=== PATIENT | female | born 1985 | race Caucasian/White ===

== ENCOUNTER 2020-09-14 15:41 | Emergency (ER) | payer MEDICAID ==
[~2020-09-14] VITALS: Ht 167.6 cm; Wt 146.7 kg
[~2020-09-14 15:41] MED LIST: HYDR-569 PO
[2020-09-14 16:18] LABS: BASOPHILS % (AUTO) 0.6 % (0-1); EOSINOPHILS # (AUTO) 0.2 X10'3 (0-0.9); EOSINOPHILS % (AUTO) 3.2 % (0-6); HEMOGLOBIN 14.1 g/dl (12.0-16.0); LYMPHOCYTES # (AUTO) 2.4 X10'3 (1.1-4.8); LYMPHOCYTES % (AUTO) 30.3 % (21-51); MEAN CORPUSCULAR HEMOGLOBIN 27.3 PG (27.0-31.0); MEAN CORPUSCULAR HGB CONC 32.8 g/dL (33.0-36.5); MEAN CORPUSCULAR VOLUME 83.2 FL (78-98); MEAN PLATELET VOLUME 9.2 FL (7.4-10.4); MONOCYTES # (AUTO) 0.4 X10'3 (0-0.9); MONOCYTES % (AUTO) 5.2 % (2-12); NEUTROPHILS # (AUTO) 4.8 X10'3 (1.8-7.7); NEUTROPHILS % (AUTO) 60.7 % (42-75); PLATELET COUNT 237 X10'3 (140-440); RED BLOOD COUNT 5.17 X10'6 (4.20-5.60); RED CELL DISTRIBUTION WIDTH 14.7 % (11.5-14.5); WHITE BLOOD COUNT 7.9 X10'3 (4.5-11.0)
[2020-09-14 16:32] LABS: ALANINE AMINOTRANSFERASE 31 U/L (12-78); ALBUMIN 3.3 G/DL (3.4-5.0); ALBUMIN/GLOBULIN RATIO 0.8 (1.1-1.5); ALKALINE PHOSPHATASE 94 IU/L (46-116); ANION GAP 10 (8-16); ASPARTATE AMINO TRANSFERASE 20 U/L (10-37); BILIRUBIN,TOTAL 0.5 MG/DL (0.1-1.0); BLOOD UREA NITROGEN 12 MG/DL (7-18); CALCIUM 8.9 MG/DL (8.5-10.1); CHLORIDE 107 MMOL/L (99-107); GLUCOSE 140 MG/DL (70-104); LIPASE 76 U/L (73-393); POTASSIUM 3.8 MMOL/L (3.5-5.1); SODIUM 143 MMOL/L (135-145); TOTAL CARBON DIOXIDE 25.7 MMOL/L (24-32); TOTAL PROTEIN 7.3 G/DL (6.4-8.2); eGFR 63 ML/MIN
[2020-09-14 16:50] LABS: CLARITY,URINE CLEAR (Clear); COLOR,URINE YELLOW (Yellow); GLUCOSE, URINE NEGATIVE (Neg); KETONES,URINE NEGATIVE (Neg); LEUKOCYTE ESTERASE ,URINE NEGATIVE (Neg); NITRITES, URINE NEGATIVE (Neg); OCCULT BLOOD,URINE NEGATIVE (Neg); PH,URINE 5.5 (4.8-8.0); PROTEIN,URINE NEGATIVE (Neg); URINE HCG NEGATIVE (NEG); UROBILINOGEN,URINE 0.2 E.U/dL (0.2-1.0)
[2020-09-14 16:51] LABS: UA COLLECTION TYPE VOIDED
[2020-09-14 17:42] VITALS: BP 134/87
[2020-09-14] MEDS ORDERED: CEPH-585 PO (17:46)
== END 2020-09-14 17:43 | disposition home or self-care (01) ==
LOC: ER 15:42
DX: R10.32 Left lower quadrant pain (principal); G47.30 Sleep apnea, unspecified; E11.9 Type 2 diabetes mellitus without complications; Z88.8 Allergy status to other drugs, medicaments and biological substances; Z79.899 Other long term (current) drug therapy
CPT/HCPCS: 36415; 80053; 81003; 81025; 83690; 85025; 99283

== ENCOUNTER 2021-01-18 04:58 | Emergency (ER) | payer MEDICAID ==
[~2021-01-18] VITALS: Ht 167.6 cm; Wt 167.3 kg
[2021-01-18 05:17] VITALS: BP 135/78
== END 2021-01-18 06:09 | disposition home or self-care (01) ==
LOC: ER 04:58
DX: B34.9 Viral infection, unspecified (principal); R05 Cough; R53.1 Weakness; R06.02 Shortness of breath; R09.89 Other specified symptoms and signs involving the circulatory and respiratory systems; E11.9 Type 2 diabetes mellitus without complications; Z88.6 Allergy status to analgesic agent; Z79.899 Other long term (current) drug therapy
CPT/HCPCS: 71045; 99283

== ENCOUNTER 2023-01-23 22:07 | Emergency (ER) | payer MEDICAID ==
[~2023-01-23] VITALS: Ht 167.6 cm; Wt 172.8 kg
[2023-01-23 22:17] VITALS: TEMP 97.7
[2023-01-23 23:36] LABS: ALANINE AMINOTRANSFERASE 25 U/L (12-78); ALBUMIN 3.4 G/DL (3.4-5.0); ALBUMIN/GLOBULIN RATIO 0.8 (1.1-1.5); ALKALINE PHOSPHATASE 99 IU/L (46-116); ANION GAP 12 (8-16); ASPARTATE AMINO TRANSFERASE 19 U/L (10-37); BILIRUBIN,TOTAL 0.5 MG/DL (0.1-1.0); BLOOD UREA NITROGEN 10 MG/DL (7-18); BUN/CREATININE RATIO 8.8 (10.0-20.0); CHLORIDE 104 MMOL/L (99-107); CREATININE 1.14 MG/DL (0.40-0.90); GLUCOSE 144 MG/DL (70-104); LIPASE < 50 U/L (73-393); POTASSIUM 3.2 MMOL/L (3.5-5.1); SODIUM 139 MMOL/L (135-145); TOTAL CARBON DIOXIDE 23.4 MMOL/L (24-32); TOTAL PROTEIN 7.5 G/DL (6.4-8.2); eCRCL 62 ML/MIN; eGFR 53 ML/MIN
[2023-01-23] MEDS ORDERED: ondansetron/PF 4mg/2ml inj IV ONE (23:55)
[2023-01-23] MEDS ORDERED: normal saline 1000ML IV soln IVB ONE (23:55)
[2023-01-23] MEDS ORDERED: morphine 4 MG/ML inj SYRINge IV PRN (23:55)
[2023-01-24 00:03] LABS: URINE HCG NEGATIVE (NEG)
[2023-01-24 00:05] LABS: BILIRUBIN,URINE MODERATE (Neg); CLARITY,URINE TURBID (Clear); COLOR,URINE YELLOW (Yellow); GLUCOSE, URINE NEGATIVE (Neg); KETONES,URINE TRACE mg/dl (Neg); LEUKOCYTE ESTERASE ,URINE NEGATIVE (Neg); NITRITES, URINE NEGATIVE (Neg); OCCULT BLOOD,URINE NEGATIVE (Neg); PROTEIN,URINE 30 mg/dl (Neg); UROBILINOGEN,URINE 0.2 E.U/dL (0.2-1.0)
[2023-01-24 00:15] LABS: UA COLLECTION TYPE CLN CATCH MIDSTREAM
[2023-01-24 00:17] LABS: HYALINE CASTS 0-3 /LPF (NEGATIVE); SQUAMOUS EPITHELIAL CELL,UR MANY /LPF (FEW)
[2023-01-24 00:20] LABS: BACTERIA,URINE 3+ /HPF (Neg); MUCUS STRANDS MODERATE /LPF (Neg); RBC,URINE 0-2 /HPF (0-2); WBC,URINE 0-4 /HPF (0-4)
[2023-01-24 00:21] LABS: YEAST FEW /HPF (NEGATIVE)
[2023-01-24 00:37] LABS: BASOPHILS % (AUTO) 0.3 % (0-1); EOSINOPHILS # (AUTO) 0.3 X10'3 (0-0.9); EOSINOPHILS % (AUTO) 2.3 % (0-6); HEMOGLOBIN 17.8 g/dl (12.0-16.0); LYMPHOCYTES # (AUTO) 1.9 X10'3 (1.1-4.8); LYMPHOCYTES % (AUTO) 13.5 % (21-51); MEAN CORPUSCULAR HEMOGLOBIN 27.5 PG (27.0-31.0); MEAN CORPUSCULAR VOLUME 83.4 FL (78-98); MEAN PLATELET VOLUME 9.6 FL (7.4-10.4); MONOCYTES # (AUTO) 0.9 X10'3 (0-0.9); MONOCYTES % (AUTO) 6.5 % (2-12); NEUTROPHILS # (AUTO) 11.1 X10'3 (1.8-7.7); NEUTROPHILS % (AUTO) 77.4 % (42-75); PLATELET COUNT 317 X10'3 (140-440); RED BLOOD COUNT 6.47 X10'6 (4.20-5.60); RED CELL DISTRIBUTION WIDTH 15.3 % (11.5-14.5); WHITE BLOOD COUNT 14.4 X10'3 (4.5-11.0)
[2023-01-24] MEDS ORDERED: potassium Cl 20 mEq SR tablet PO STA (02:14)
[2023-01-24] MEDS ORDERED: HYDR-3972 PO ×2 (02:19)
[2023-01-24] MEDS ORDERED: ONDA4TAB12 PO (02:19)
[2023-01-24 02:36] VITALS: BP 133/87; PULSE 104; RESP 16; O2SAT 96
== END 2023-01-24 02:38 | disposition home or self-care (01) ==
LOC: ER 22:08
DX: K80.50 Calculus of bile duct without cholangitis or cholecystitis without obstruction (principal); E87.6 Hypokalemia
CPT/HCPCS: 74176; 80053; 81001; 81025; 83690; 85025; 87088; 96361; 96374; 96375; 99285; J2270; J2405; J7030; 81003

== ENCOUNTER 2023-03-04 05:33 | Day surgery (SDC) | payer MEDICAID ==
[2023-02-25 10:40] LABS: MONOCYTES # (AUTO) 0.5 X10'3 (0-0.9); PRE OP PLATELET COUNT 232 X10'3 (140-440)
[2023-02-25 10:42] LABS: BASOPHILS % (AUTO) 0.5 % (0-1); EOSINOPHILS # (AUTO) 0.2 X10'3 (0-0.9); LYMPHOCYTES # (AUTO) 2.1 X10'3 (1.1-4.8); LYMPHOCYTES % (AUTO) 34.2 % (21-51); MEAN CORPUSCULAR HEMOGLOBIN 27.7 PG (27.0-31.0); MEAN CORPUSCULAR HGB CONC 32.9 g/dL (33.0-36.5); MEAN CORPUSCULAR VOLUME 84.1 FL (78-98); NEUTROPHILS # (AUTO) 3.2 X10'3 (1.8-7.7); NEUTROPHILS % (AUTO) 53.3 % (42-75); PRE OP HEMATOCRIT 43.7 % (35.0-45.0); PRE OP HEMOGLOBIN 14.4 g/dL (12.0-16.0); RED CELL DISTRIBUTION WIDTH 15.2 % (11.5-14.5)
[2023-02-25 10:53] LABS: ALBUMIN 3.2 G/DL (3.4-5.0); ALBUMIN/GLOBULIN RATIO 0.8 (1.1-1.5); ALKALINE PHOSPHATASE 103 IU/L (46-116); BLOOD UREA NITROGEN 12 MG/DL (7-18); BUN/CREATININE RATIO 11.7 (10.0-20.0); CALCIUM 9.2 MG/DL (8.5-10.1); CHLORIDE 106 MMOL/L (99-107); CREATININE 1.03 MG/DL (0.40-0.90); PRE OP ALT 40 U/L (30-65); PRE OP ANION GAP 5 (8-16); PRE OP AST 23 U/L (10-37); PRE OP BILIRUB, TOTAL 0.5 MG/DL (0.0-1.0); PRE OP GLUCOSE 145 MG/DL (70-104); PRE OP POTASSIUM 3.7 MMOL/L (3.4-5.1); PRE OP SODIUM 140 MMOL/L (135-145); TOTAL PROTEIN 7.1 G/DL (6.4-8.2); eGFR 60 ML/MIN
[2023-03-04] VITALS (12 sets, daily range): BP systolic 110–139; BP diastolic 46–98; PULSE 55–99; RESP 12–21; TEMP 98.5; O2SAT 90–98
[~2023-03-04] VITALS: Ht 167.6 cm; Wt 178.4 kg
[~2023-03-04 05:33] MED LIST changes: -HYDR-569 PO; +INDOCYANINE GREEN 25 MG/10 ML VIAL IV ONE; +SEMA1PEN3 SQ; +ceFAZolin inj. 3,000 MG in normal saline 100ml IV soln 100 ML IV ONE; +famotidine 20mg tablet PO ONE; +ringers solution, lacted 1,000 ML IV SCH
[2023-03-04] MEDS ORDERED: LIDOcaine 1% 30ml preserv. free vial ONE (06:39)
[2023-03-04] MEDS ORDERED: BUPIVAcaine/PF 2.5 mg/ml (0.25%) 30ml vial ONE (06:39)
[2023-03-04] MEDS ORDERED: fentaNYL/PF 50MCG/1 ML 2ML syringe ONE ×2 (07:22→08:00)
[2023-03-04] MEDS ORDERED: midazolam 1 mg/ML 2ml injection ONE (07:22)
[2023-03-04] MEDS ORDERED: sevoflurane 250ml liquid IH ONE (07:29)
[2023-03-04] MEDS ORDERED: meperidine/PF 25mg/ml syringe IV PRN ×3 (07:50)
[2023-03-04] MEDS ORDERED: proCHLORperazine 10 MG/2 ml inj IV PRN (07:50)
[2023-03-04] MEDS ORDERED: morphine 2 MG/ML inj. syringe IV PRN (07:50)
[2023-03-04] MEDS ORDERED: ondansetron/PF 4mg/2ml inj IV PRN (07:50)
[2023-03-04] MEDS ORDERED: morphine 4 MG/ML inj SYRINge IV PRN (07:50)
[2023-03-04] MEDS ORDERED: ringers solution, lacted 1,000 ML IV SCH (07:50)
[2023-03-04] MEDS ORDERED: propofol inj 20 ML IV ONE (08:57)
[2023-03-04] MEDS ORDERED: hydrALAZINE 20mg/ml inj. IV ONE (08:57)
[2023-03-04] MEDS ORDERED: rocuronium 10mg/ml inj IV ONE (08:57)
[2023-03-04] MEDS ORDERED: LIDOcaine 2% (20mg/ml) 5ml vial ONE (08:57)
[2023-03-04] MEDS ORDERED: succinylcholine 20mg/ml inj IV ONE (08:57)
[2023-03-04] MEDS ORDERED: dexamethasone sod phosphate 4mg/ml inj. ONE (08:57)
[2023-03-04] MEDS ORDERED: labetalol 20mg/4ml (5mg/ml) syringe IV ONE (08:57)
[2023-03-04] MEDS ORDERED: ondansetron/PF 4mg/2ml inj ONE (08:57)
[2023-03-04] MEDS ORDERED: sugammadex 200mg/2ml injection IV ONE ×2 (09:07→09:10)
--- NOTE | 2023-03-04 09:11 | NUR ---
Received from OR via sabrina, accompanied by Anesthesiologist and report given by NEIL Anesthesiologist. PATIENT A&OX4, SEVERE ABDOMEN PAIN-MEDICATED, V/S WNL, SCD ON , PIV 20G RIGHT FOREARM, BANDAID LAPS SITES CLOSED C/D/I TO ABDOMEN. Addendum: 03/04/23 at 8615 by Roderick Barney RN Amended: Links added.
[2023-03-04] MEDS ORDERED: acetaminophen 1,000mg/100ml IV 100 ML IV ONE (09:20)
[2023-03-04] MEDS ORDERED: oxyCODONE/APAP 5-325mg tablet PO PRN (09:25)
[2023-03-04] MEDS ORDERED: neostigmine methylsulfate 1 MG/ML 10ml vial ONE (09:32)
[2023-03-04] MEDS ORDERED: glycopyrrolate 0.2mg/ml inj ONE (09:32)
--- NOTE | 2023-03-04 11:06 | NUR ---
ALL DISCHARGE CRITERIA HAS BEEN MET. VSS, PAIN AT A TOLERABLE LEVEL, VOIDING AND ABLE TO SAFELY AMBULATE AND TRANSFER SELF. IV TAKEN OUT WITHOUT ANY COMPLICATIONS. ALL DISCHARGE INSTRUCTIONS COVERED WITH PATIENT AND ALL QUESTIONS ANSWERED. PATIENT TAKEN OUT VIA WHEELCHAIR WITH ALL BELONGINGS TO PERSONAL VEHICLE WHERE FAMILY DROVE PATIENT HOME. Addendum: 03/04/23 at 1124 by Roderick Barney RN Amended: Links added.
== END 2023-03-04 11:06 | disposition home or self-care (01) ==
LOC: PAS 05:33
PROVIDERS: ATTEND Surgery
DX: K80.20 Calculus of gallbladder without cholecystitis without obstruction (principal); E66.01 Morbid (severe) obesity due to excess calories; Z79.899 Other long term (current) drug therapy; Z98.49 Cataract extraction status, unspecified eye; Z98.890 Other specified postprocedural states; Z68.44 Body mass index [BMI] 60.0-69.9, adult
CPT/HCPCS: 36415; 47563; 80053; 82948; 85025; 93005; J0131; J0330; J0360; J0690; J1100; J2175; J2250; J2270; J2405; J2704; J2710; J3010; J3490; J7030; J7120; S2900; Z7506; Z7508; Z7512; A4215; A4618; A7000

== ENCOUNTER 2023-10-07 18:47 | Emergency (ER) | payer MEDICAID ==
[~2023-10-07] VITALS: Ht 167.6 cm; Wt 177.6 kg
[~2023-10-07 18:47] MED LIST changes: -INDOCYANINE GREEN 25 MG/10 ML VIAL IV ONE; -ceFAZolin inj. 3,000 MG in normal saline 100ml IV soln 100 ML IV ONE; -famotidine 20mg tablet PO ONE; -ringers solution, lacted 1,000 ML IV SCH
[2023-10-07 19:22] LABS: URINE HCG NEGATIVE (NEG)
[2023-10-07 19:29] LABS: BILIRUBIN,URINE NEGATIVE (Neg); CLARITY,URINE CLEAR (Clear); COLOR,URINE YELLOW (Yellow); GLUCOSE, URINE NEGATIVE (Neg); KETONES,URINE TRACE mg/dl (Neg); LEUKOCYTE ESTERASE ,URINE NEGATIVE (Neg); NITRITES, URINE NEGATIVE (Neg); OCCULT BLOOD,URINE NEGATIVE (Neg); PROTEIN,URINE NEGATIVE (Neg); UROBILINOGEN,URINE 0.2 E.U/dL (0.2-1.0)
[2023-10-07 19:30] LABS: UA COLLECTION TYPE NON-SPECIFIED
[2023-10-07 19:33] LABS: BASOPHILS # (AUTO) 0.1 X10'3 (0-0.2); BASOPHILS % (AUTO) 0.8 % (0-1); EOSINOPHILS # (AUTO) 0.5 X10'3 (0-0.9); HEMATOCRIT 44.5 % (35.0-45.0); HEMOGLOBIN 14.8 g/dl (12.0-16.0); LYMPHOCYTES # (AUTO) 2.5 X10'3 (1.1-4.8); LYMPHOCYTES % (AUTO) 27.6 % (21-51); MEAN CORPUSCULAR HEMOGLOBIN 27.6 PG (27.0-31.0); MEAN CORPUSCULAR HGB CONC 33.1 g/dL (33.0-36.5); MEAN CORPUSCULAR VOLUME 83.3 FL (78-98); MEAN PLATELET VOLUME 9.5 FL (7.4-10.4); MONOCYTES # (AUTO) 0.6 X10'3 (0-0.9); NEUTROPHILS # (AUTO) 5.5 X10'3 (1.8-7.7); NEUTROPHILS % (AUTO) 59.6 % (42-75); PLATELET COUNT 213 X10'3 (140-440); RED BLOOD COUNT 5.35 X10'6 (4.20-5.60); RED CELL DISTRIBUTION WIDTH 15.1 % (11.5-14.5); WHITE BLOOD COUNT 9.2 X10'3 (4.5-11.0)
[2023-10-07 19:49] LABS: ALANINE AMINOTRANSFERASE 33 U/L (12-78); ALBUMIN 3.4 G/DL (3.4-5.0); ALBUMIN/GLOBULIN RATIO 0.9 (1.1-1.5); ALKALINE PHOSPHATASE 89 IU/L (46-116); ANION GAP 7 (8-16); ASPARTATE AMINO TRANSFERASE 25 U/L (10-37); BILIRUBIN,TOTAL 0.6 MG/DL (0.1-1.0); BLOOD UREA NITROGEN 8 MG/DL (7-18); BUN/CREATININE RATIO 7.3 (10.0-20.0); CHLORIDE 109 MMOL/L (99-107); CREATININE 1.09 MG/DL (0.40-0.90); GLUCOSE 99 MG/DL (70-104); LIPASE 46 U/L (16-77); POTASSIUM 3.8 MMOL/L (3.5-5.1); SODIUM 143 MMOL/L (135-145); TOTAL CARBON DIOXIDE 27.4 MMOL/L (24-32); TOTAL PROTEIN 7.3 G/DL (6.4-8.2); eCRCL 65 ML/MIN; eGFR 56 ML/MIN
[2023-10-07 22:21] VITALS: BP 125/76; PULSE 60; RESP 17; TEMP 98.3; O2SAT 94
[2023-10-07] MEDS ORDERED: METR-159 PO (22:23)
[2023-10-07] MEDS ORDERED: LEVO-65 PO (22:23)
== END 2023-10-07 22:28 | disposition home or self-care (01) ==
LOC: ER 18:47
DX: K52.9 Noninfective gastroenteritis and colitis, unspecified (principal); E11.9 Type 2 diabetes mellitus without complications; G47.30 Sleep apnea, unspecified; Z88.8 Allergy status to other drugs, medicaments and biological substances
CPT/HCPCS: 36415; 74176; 80053; 81003; 81025; 83690; 85025; 99284

== ENCOUNTER 2024-09-03 03:56 | Inpatient (IN) | payer MEDICAID ==
[~2024-09-03] VITALS: Ht 167.6 cm; Wt 161.3 kg
--- NOTE | 2024-09-03 06:29 | Physician Documentation ---
History of Present Illness ~ Chief Complaint: Leg Pain Stated Complaint: INFECTED LEG AND FOOT Time Seen by MD: 06:23 Primary Medical Doctor: rakan Source: patient, family HPI Patient presenting for right foot swelling. She was recently in [place] where she was noted to have a cellulitis and she was prescribed Levaquin. Her symptoms have worsened as well as increasing swelling Tetanus witin 5 years: Yes (2018) Medication Reconciliation Allergies: Coded Allergies: naproxen (Unverified Allergy, Unknown, 09/03/24) Scheduled Semaglutide (Ozempic), 1 DIS.SYR SQ Q7D, (Reported) Past Medical History Past Medical History: Sleep Apnea, Diabetes Past Surgical History: no surgical history Alcohol Use: None Drug Use: none Lives with: Family Review of Systems Constitutional: Denies: chills, fever Physical Exam Vital Signs: Temperature: 98.0, Source: Oral, Heart Rate: 82, Respiratory Rate: 16, BP: 139/83, Pulse Oximetry: 97, Weight: 161.300 Oxygen Flow Rate: 0 Physical Exam Nontoxic Morbidly obese Purulent wound plantar surface of right foot. Dorsal foot swelling and erythema tracking up mid calf. Progress Progress Note Discussed with the hospitalist team who agree with plan for admission Results/Orders Reviewed/noted all lab results: Yes Results/Orders Orders - MORENO LIAO MD Cult (Aer) Routine C&S+Gram St (09/03/24 06:27) Wound Care Orders (09/03/24 06:27) BMP (09/03/24 06:27) Piperacillin/Tazo 4.5gm/100ml (Zosyn 4.5 (09/03/24 08:00) ESR (09/03/24 06:31) C-Reactive Protein (09/03/24 06:31) Foot, Complete (3vw Min) (09/03/24 06:31) Page Hospitalist (09/03/24 06:38) Fill Out Med Reconciliation (09/03/24 06:38) Completed Orders - MORENO LIAO MD Cbc/Diff (09/03/24 06:27) Foot, Complete (3vw Min) (09/03/24 06:31) Vital Signs 09/03/24 04:02 Temp 98.0 Pulse 82 Resp 16 B/P (MAP) 139/83 Pulse Ox 97 O2 Flow Rate 0 Laboratory Tests Test 09/03/24 06:49 White Blood Count 9.2 Red Blood Count 5.25 Hemoglobin 14.2 Hematocrit 42.4 Mean Corpuscular Volume 80.8 Mean Corpuscular Hemoglobin 27.1 Mean Corpuscular Hemoglobin Concent 33.5 Red Cell Distribution Width 15.0 H Platelet Count 222 Mean Platelet Volume 9.7 Neutrophils (%) (Auto) 64.4 Lymphocytes (%) (Auto) 23.7 Monocytes (%) (Auto) 9.2 Eosinophils (%) (Auto) 2.2 Basophils (%) (Auto) 0.5 Neutrophils # (Auto) 5.9 Lymphocytes # (Auto) 2.2 Monocytes # (Auto) 0.8 Eosinophils # (Auto) 0.2 Basophils # (Auto) 0.0 CBC Comment Chemistry Comments EKG/XRAY/CT/US/VASC/MRI Bone/Soft Tissue X-Ray (Ext.) : Additional Comment X-ray independently interpreted by myself shows no foreign body soft tissue edema no osteomyelitis Medical Decision Making Findings Reviewed discharge summary February 2023 Additional Comment Cellulitis, abscess, immersion foot Departure Disposition: ADMITTED INPATIENT Admitted to Inpatient Unit: to hospitalist Impression: Primary Impression: Cellulitis Qualified Codes: L03.115 - Cellulitis of right lower limb Additional Impression Text Patient with morbid obesity presenting for increasing drainage and redness from atraumatic foot wound while in [place] traveling. She is afebrile. She has cellulitis of right lower extremity some purulent drainage from her dorsal foot. She will we will need to be admitted for IV antibiotics and wound care given extent of infection and failure of p.o. antibiotics Referrals: NO PRIMARY CARE PROVIDER (PCP) Signature Scribe Signature: Chanelle Attestation: MORENO Noyola MD Sep 03, 2024 06:29
[2024-09-03 07:00] LABS: BASOPHILS % (AUTO) 0.5 % (0-1); EOSINOPHILS # (AUTO) 0.2 X10'3 (0-0.9); EOSINOPHILS % (AUTO) 2.2 % (0-6); HEMATOCRIT 42.4 % (35.0-45.0); HEMOGLOBIN 14.2 g/dl (12.0-16.0); LYMPHOCYTES # (AUTO) 2.2 X10'3 (1.1-4.8); LYMPHOCYTES % (AUTO) 23.7 % (21-51); MEAN CORPUSCULAR HEMOGLOBIN 27.1 PG (27.0-31.0); MEAN CORPUSCULAR HGB CONC 33.5 g/dL (33.0-36.5); MEAN CORPUSCULAR VOLUME 80.8 FL (78-98); MEAN PLATELET VOLUME 9.7 FL (7.4-10.4); MONOCYTES # (AUTO) 0.8 X10'3 (0-0.9); MONOCYTES % (AUTO) 9.2 % (2-12); NEUTROPHILS # (AUTO) 5.9 X10'3 (1.8-7.7); NEUTROPHILS % (AUTO) 64.4 % (42-75); PLATELET COUNT 222 X10'3 (140-440); RED BLOOD COUNT 5.25 X10'6 (4.20-5.60); WHITE BLOOD COUNT 9.2 X10'3 (4.5-11.0)
--- NOTE | 2024-09-03 07:03 | RADIOLOGY REPORT ---
CLINICAL INDICATION: right plantar foot infection TECHNIQUE: DI FOOT, COMPLETE (3VW MIN) Comparison: None FINDINGS/IMPRESSION: : There is no evidence of acute fracture or dislocation. No definite radiographic evidence of osteomyelitis. Plantar calcaneal enthesopathy. Moderate diffuse plantar surface soft tissue swelling.
[2024-09-03 07:11] LABS: ALBUMIN 3.1 G/DL (3.4-5.0); ANION GAP 12 (8-16); BLOOD UREA NITROGEN 18 MG/DL (7-18); BUN/CREATININE RATIO 14.9 (10.0-20.0); C-REACTIVE PROTEIN 10.45 MG/DL (0.0-0.5); CALCIUM 8.8 MG/DL (8.5-10.1); CHLORIDE 103 MMOL/L (99-107); CREATININE 1.21 MG/DL (0.40-0.90); GLUCOSE 94 MG/DL (70-104); SODIUM 142 MMOL/L (135-145); TOTAL CARBON DIOXIDE 27.5 MMOL/L (24-32); eCRCL 58 ML/MIN; eGFR 49 ML/MIN
[2024-09-03 07:15] LABS: POTASSIUM 2.5 MMOL/L (3.5-5.1)
[2024-09-03] MEDS: potassium Cl 20 mEq SR tablet PO STA ×2 (08:22→17:09)
[2024-09-03] MEDS: piperacillin/tazo 4.5gm/100ml 100 ML IV ONE (08:22)
[2024-09-03] MEDS ORDERED: ondansetron/PF 4mg/2ml inj IV PRN (09:45)
[2024-09-03] MEDS ORDERED: potassium Cl 20 mEq SR tablet PO PRN (09:45)
[2024-09-03] MEDS ORDERED: mag hydrox/Alum hydrox/simeth 30ml oral suspension PO PRN (09:45)
[2024-09-03] MEDS ORDERED: morphine 2 MG/ML inj. syringe IV PRN (09:45)
[2024-09-03] MEDS ORDERED: potassium Cl 40MEQ/1/2NS 520ml 520 ML IV PRN (09:45)
[2024-09-03] MEDS ORDERED: magnesium sulf-water 2g/50mL 50 ML IV PRN (09:45)
[2024-09-03] MEDS ORDERED: magnesium sulf-water 4G/100mL 100 ML IV PRN (09:45)
[2024-09-03] MEDS ORDERED: magnesium hydroxide 30ml (MOM) UD suspension PO PRN (09:45)
[2024-09-03] MEDS ORDERED: magnesium Cl slow-release 64mg tablet PO PRN (09:45)
[2024-09-03 10:03] LABS: MAGNESIUM 2.1 MG/DL (1.5-2.4)
[2024-09-03 10:05] LABS: HEMOGLOBIN A1C 5.4 % (4.5-6.2)
--- NOTE | 2024-09-03 11:27 | HISTORY AND PHYSICAL-Residence ---
History & Physical Providers to CC Resident Creating Document: JUSTIN STEARNS, RES ~ History of Present Illness Primary Medical Doctor: DO rakan. [facility] Reason for Admit\Complaint: Right foot pain History of Present Illness 39 years old female patient with past medical history of obstructive sleep apnea, prediabetes, and obesity came to the hospital with chief complaint of right lower extremity pain. The patient mentioned that she noticed a blister in her right foot the last Wednesday, after two days she noticed the blister this one broke and redness started going up to his right calf and leg. Previous to that she endorses that she did a long walk of 6 hours in [facility] where she traveled on 08/26/2024. The patient describes burning sensation, pain 10/10 in intensity in the right lower extremity, no radiation, associated throbbing, feeling hot, she endorses on and off chills and nausea. The patient mentioned that she went to a clinic in [facility] due to her blisters, she was prescribed with a an antibiotic for three days, and discharged. The patient states that her trip was on 19 hours flight. Associated to these symptoms she also endorses diarrhea for 10 days which resolved two days ago, normal bowel movements in the last two days. The patient regularly walks by herself but lately for her blisters she has been walking with the help of a cane. Allergies: Coded Allergies: naproxen (Unverified Allergy, Unknown, 09/03/24) Home Medications Home Medications Active Reported Ozempic (Semaglutide) 1 Mg/0.75 Ml (4 Mg/3 Ml) Pen.injctr 1 Dis.syr SQ Q7D Past Medical History Past Medical History Obstructive sleep apnea currently on CPAP at nights. Prediabetic, the patient is currently using Ozempic 1 mg weekly. The last dose was two weeks ago. Past Surgical History Surgical History Comment Ovarian cyst removal 10 years ago. Cholecystectomy one year ago. 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 HEENT: Conjunctive are pink, sclerae clear, no icterus, pupil is equal in both sides, reactive to light, no ear discharge, no pharyngeal erythema or an edema. Presence of white tongue, plaque not removable. Neck: Supple, no JVD, no lymphadenopathy and thyromegaly. Chest: Equal air entry on both lungs, no additional sounds no rhonchi no wheezing at the moment. Cardiovascular: S1-S2 regular sinus rhythm and, regular rate, no gallops, no rubs, no murmurs Abdomen: No visible peristalsis, Bowel sounds present on auscultation, soft, nontender, no guarding, no rigidity Extremities: 3+ pedal edema in right lower extremity, red, warm to the touch, blisters in the plantar sore face of bilateral feet. Central Nervous System: No focal neurological deficits, no motor or sensory weakness in all 4 extremities, could move all 4 extremities, 2+ deep tendon reflexes, negative Babinski. Musculoskeletal: No joint swelling, deformities, inflammations, and no scoliosis and back tenderness. Diagnostic Data Last Recorded Lab Results: 09/03/24 0649 09/03/24 0649 Advance Care Planning Advanced Care plannin - 30 Minutes (I spent a total of 17 minutes on reviewing various resuscitative measures/ACP with the patient at the time of admission. The patient has decided on a full code status.) Additional Plan Assessment and plan: 39-year-old female patient came to the hospital with chief complaint of right lower extremity pain, redness. Right lower extremity cellulitis: Well's criteria: 4.5 Patient came to the hospital with chief complaint of right lower extremity swelling and redness. On physical exam right lower extremity is evidenced red, warm to the touch, presence of blisters in bilateral plantar aspect of the feet. Due to the patient recent long travel history, D-dimer is ordered. Follow-up vascular ultrasound. Follow-up lactic acid. Follow-up procalcitonin. Zosyn IV t.i.d. Openned blisters in bilateral plantar aspect of the feet. Wound care consulted. Hypokalemia: The patient endorses 10 episodes of diarrhea which resolved two days ago. Potassium levels 2.5. 40 mEq of potassium p.o. given. Follow-up potassium levels. Replacement as per protocol. Prediabetes: Obesity class 3: BMI 57.4. The patient was on Ozempic 1 mg weekly last dose two weeks ago. Obstructive sleep apnea: CPAP at night. The patient was on Ozempic 1 mg weekly. Code status: Full code. Diet: Regular diet. IV access: PIV. DVT prophylaxis: Heparin. Pain control: Morphine. Justin Cabral Internal Medicine Resident [facility] Date of Service: Sep 03, 2024 Billing Provider: CHAY BANGURA MD,JUSTIN LIVE, RES Sep 03, 2024 11:27
[2024-09-03 12:00] VITALS: BP 148/81; PULSE 89; RESP 16; RESP 18; TEMP 97.4; O2SAT 95
[2024-09-03] MEDS: normal saline 1000ml 1,000 ML IV SCH (12:00)
[2024-09-03 12:45] LABS: D-DIMER 1.53 MG/L FEU (0-0.50); INR 1.1 INR; PROTHROMBIN TIME 11.3 SECONDS (9.0-12.0)
[2024-09-03 13:26] LABS: HIV ANTIBODY 1&2 RAPID NON-REACTIVE (Neg)
--- NOTE | 2024-09-03 13:35 | VASCULAR REPORT ---
CLINICAL HISTORY: Bilateral lower extremity pain, wounds. History of long flight greater than 8 hours COMPARISON: None TECHNIQUE: Bilateral lower extremity venous duplex exam was performed. Grayscale, color flow, and spe ctral waveform analysis was performed. The deep veins of the lower extremity were evaluated for compr ession, phasic flow, and augmentation. Color flow and spectral waveform analysis were performed. FINDINGS: This examination demonstrates normal compression, augmentation, and phasic flow of both low er extremities. No evidence for thrombus within the common femoral, femoral, and popliteal veins. In addition, the visualized calf veins demonstrated normal compression and color flow. Unable to visual ize the right peroneal veins due to body habitus. IMPRESSION: There is no evidence for DVT in either lower extremity.
[2024-09-03] MEDS: morphine 2 MG/ML inj. syringe IV PRN (14:24)
[2024-09-03] MEDS ORDERED: iohexol 350MG/ML 100ml bottle IV ONE (15:54)
[2024-09-03] MEDS: piperacillin/tazo 3.375gm/50ml 50 ML IV SCH (17:10)
[2024-09-03 18:00] VITALS: BP 109/51; PULSE 70; RESP 16; TEMP 97.7; O2SAT 98
[2024-09-03 20:00] VITALS: RESP 16; O2SAT 98
[2024-09-03] MEDS: K and/or MAG REPLACEMENT MC SCH (20:36)
[2024-09-03] MEDS: heparin, porcine 5000 units/ml vial SQ SCH (20:38)
[2024-09-03 22:00] VITALS: BP 121/80; PULSE 84; RESP 16; TEMP 97; O2SAT 96
[2024-09-03] MEDS: potassium Cl 20 mEq SR tablet PO PRN (23:19)
[2024-09-04 05:55] LABS: BASOPHILS % (AUTO) 0.5 % (0-1); EOSINOPHILS # (AUTO) 0.2 X10'3 (0-0.9); EOSINOPHILS % (AUTO) 4.6 % (0-6); HEMATOCRIT 38.2 % (35.0-45.0); HEMOGLOBIN 12.6 g/dl (12.0-16.0); LYMPHOCYTES # (AUTO) 1.9 X10'3 (1.1-4.8); LYMPHOCYTES % (AUTO) 35.7 % (21-51); MEAN CORPUSCULAR HGB CONC 32.9 g/dL (33.0-36.5); MEAN CORPUSCULAR VOLUME 82.1 FL (78-98); MEAN PLATELET VOLUME 10.1 FL (7.4-10.4); MONOCYTES # (AUTO) 0.6 X10'3 (0-0.9); MONOCYTES % (AUTO) 11.4 % (2-12); NEUTROPHILS # (AUTO) 2.6 X10'3 (1.8-7.7); NEUTROPHILS % (AUTO) 47.8 % (42-75); PLATELET COUNT 187 X10'3 (140-440); RED BLOOD COUNT 4.66 X10'6 (4.20-5.60); RED CELL DISTRIBUTION WIDTH 15.5 % (11.5-14.5); WHITE BLOOD COUNT 5.4 X10'3 (4.5-11.0)
[2024-09-04 06:00] VITALS: BP 104/61; PULSE 69; RESP 19; TEMP 97.4; O2SAT 98
[2024-09-04 06:17] LABS: ALANINE AMINOTRANSFERASE 62 U/L (12-78); ALBUMIN 2.3 G/DL (3.4-5.0); ALBUMIN/GLOBULIN RATIO 0.7 (1.1-1.5); ALKALINE PHOSPHATASE 78 IU/L (46-116); ANION GAP 5 (8-16); ASPARTATE AMINO TRANSFERASE 39 U/L (10-37); BILIRUBIN,TOTAL 0.5 MG/DL (0.1-1.0); BLOOD UREA NITROGEN 13 MG/DL (7-18); BUN/CREATININE RATIO 12.9 (10.0-20.0); CALCIUM 8.3 MG/DL (8.5-10.1); CHLORIDE 109 MMOL/L (99-107); CHOL/HDL RATIO 4.4 (0.00-4.99); CHOLESTEROL 128 MG/DL (0-200); CREATININE 1.01 MG/DL (0.40-0.90); GLUCOSE 87 MG/DL (70-104); HDL CHOLESTEROL 29 MG/DL (35-60); LDL CHOLESTEROL 80 MG/DL (50-100); MAGNESIUM 2.2 MG/DL (1.5-2.4); POTASSIUM 3.8 MMOL/L (3.5-5.1); SODIUM 144 MMOL/L (135-145); TOTAL CARBON DIOXIDE 29.8 MMOL/L (24-32); TOTAL PROTEIN 5.8 G/DL (6.4-8.2); TRIGLYCERIDES 105 MG/DL (20-135); eCRCL 69 ML/MIN; eGFR 61 ML/MIN
[2024-09-04 08:00] VITALS: RESP 19; O2SAT 98
[2024-09-04] MEDS ORDERED: iohexol 350MG/ML 100ml bottle IV ONE (10:28)
--- NOTE | 2024-09-04 12:21 | RADIOLOGY REPORT ---
CTA chest INDICATION: chest thigness, after long trip. Rule out pulmonary embolism Technique: Serial axial images were performed through the chest using 3 mm slice thickness and interv al following the administration of 100 mL of Omnipaque 350 IV contrast. Multiplanar MIP reconstructi on imaging was provided and reviewed at the workstation FINDINGS: No filling defects in the central branches of the pulmonary arteries is normal. Lung mesa are normal. Heart size is enlarged. No pericardial effusion. There are small mediastinal lymph nodes under a cm in size. No enlarged hilar lymph nodes Images of the upper abdomen reveal no bony abnormalities IMPRESSION: 1. No central pulmonary emboli. No acute cardiopulmonary pathology.Mild cardiomegaly 2. Computed Tomographic Radiation Dosimetry Report: Total CTDI vol = 25 mGy Total DLP = 839 mGy-cm All CT scans at this medical facility are performed using dose modulation techniques as appropriate t o a performed exam including the following: Automated exposure control was utilized; adjustment of the MA and/or KvP according to patient size; a nd use of iterative reconstruction technique.
--- NOTE | 2024-09-04 14:25 | PROGRESS NOTE- Residence ---
Progress Note - Resident Providers to CC Resident Creating Document: JUSTIN STEARNS, CHUY ~ Antibiotic Timeout Antibiotic Ordered?: Yes Subjective Patient has been evaluated at bedside. The patient reports improvement of symptoms, rash decreasing in size. Objective Vital Signs Date Time Temp Pulse Resp B/P (MAP) Pulse Ox O2 Delivery O2 Flow Rate FiO2 09/04/24 08:00 19 98 Room Air 0.0 09/04/24 06:00 62 09/04/24 06:00 97.4 104/61 (75) Physical exam: General: Well alert, well oriented, not confused, not agitated, not in acute distress, well cooperated during the physical. HEENT: Conjunctive are pink, sclerae clear, no icterus, pupil is equal in both sides, reactive to light, no ear discharge, no pharyngeal erythema or an edema. Presence of white tongue, plaque not removable-improving. Neck: Supple, no JVD, no lymphadenopathy and thyromegaly. Chest: Equal air entry on both lungs, no additional sounds no rhonchi no wheezing at the moment. Cardiovascular: S1-S2 regular sinus rhythm and, regular rate, no gallops, no rubs, no murmurs Abdomen: No visible peristalsis, Bowel sounds present on auscultation, soft, nontender, no guarding, no rigidity. Extremities: 3+ pedal edema in right lower extremity, red, warm to the touch, blisters in the plantar sore face of bilateral feet. Left lower extremity without edema, redness. Central Nervous System: No focal neurological deficits, no motor or sensory weakness in all 4 extremities, could move all 4 extremities, 2+ deep tendon reflexes, negative Babinski. Musculoskeletal: No joint swelling, deformities, inflammations, and no scoliosis and back tenderness. Result Diagram: 09/04/24 0518 09/04/24 0518 Coagulation Studies Laboratory Tests Test 09/03/24 12:04 Prothrombin Time 11.3 SECONDS (9.0-12.0) INR International Normalized Ratio 1.1 INR D-Dimer 1.53 MG/L FEU (0-0.50) H D-Dimer Comment Coagulation Comments Assessment Assessment 39-year-old female patient came to the hospital with chief complaint of right lower extremity pain and redness. The patient had a recent trip to [facility], she reports that her trip was about 17 hours. Plan Plan Right lower extremity cellulitis: DVT and pulmonary embolism-ruled out: Well's criteria: 4.5 Patient came to the hospital with chief complaint of right lower extremity swelling and redness. On physical exam right lower extremity is evidenced red, warm to the touch, presence of blisters in bilateral plantar aspect of the feet. Due to the patient recent long travel history, D-dimer elevated. Vascular ultrasound of bilateral lower extremities: Impression: There is no evidence for DVT in either lower extremity. Lactic acid within reference range. Mild elevation of procalcitonin. Follow-up procalcitonin. Zosyn IV t.i.d. Linezolid 600 mg IV b.i.d. Openned blisters in bilateral plantar aspect of the feet. Continue wound care. Oral thrush: POA: HIV: Negative Nystatin oral suspension 5 mL t.i.d. Follow-up vitamin B12. Hypokalemia: The patient endorses 10 episodes of diarrhea which resolved two days ago. Currently resolved. Potassium levels 2.5. 40 mEq of potassium p.o. given. Potassium levels within reference range. Replacement as per protocol. Prediabetes: Obesity class 3: BMI 57.4. Hemoglobin A1c: 5.4. The patient was on Ozempic 1 mg weekly. Obstructive sleep apnea: CPAP at night. The patient was on Ozempic 1 mg weekly. Code status: Full code. Diet: Regular diet. IV access: PIV. DVT prophylaxis: Heparin. Pain control: Morphine. Disposition: Continue antibiotic therapy. Follow-up blood cultures. Justin Cabral Internal Medicine Resident [facility] Date of Service: Sep 04, 2024 Billing Provider: CHAY BANGURA MD,JUSTIN LIVE, RES Sep 04, 2024 14:24
[2024-09-04] MEDS: linezolid 600mg/300ml PREMIX 300 ML IV SCH (16:17)
[2024-09-04] MEDS: nystatin 500,000 unit/5ML UD oral suspension PO SCH (17:03)
[2024-09-04 18:00] VITALS: BP 110/65; PULSE 66; RESP 16; TEMP 97.6; O2SAT 96
[2024-09-04 20:00] VITALS: RESP 16; O2SAT 96
[2024-09-04 22:00] VITALS: BP 109/63; PULSE 69; RESP 18; TEMP 97.3; O2SAT 99
[2024-09-05 05:59] LABS: BASOPHILS % (AUTO) 0.3 % (0-1); EOSINOPHILS # (AUTO) 0.3 X10'3 (0-0.9); EOSINOPHILS % (AUTO) 4.8 % (0-6); HEMATOCRIT 38.7 % (35.0-45.0); HEMOGLOBIN 12.7 g/dl (12.0-16.0); LYMPHOCYTES # (AUTO) 2.3 X10'3 (1.1-4.8); MEAN CORPUSCULAR HGB CONC 32.9 g/dL (33.0-36.5); MEAN CORPUSCULAR VOLUME 81.9 FL (78-98); MEAN PLATELET VOLUME 9.9 FL (7.4-10.4); MONOCYTES # (AUTO) 0.5 X10'3 (0-0.9); MONOCYTES % (AUTO) 8.3 % (2-12); NEUTROPHILS # (AUTO) 2.5 X10'3 (1.8-7.7); NEUTROPHILS % (AUTO) 45.6 % (42-75); PLATELET COUNT 208 X10'3 (140-440); RED BLOOD COUNT 4.73 X10'6 (4.20-5.60); RED CELL DISTRIBUTION WIDTH 15.2 % (11.5-14.5); WHITE BLOOD COUNT 5.5 X10'3 (4.5-11.0)
[2024-09-05 06:00] VITALS: BP 117/58; PULSE 59; RESP 14; TEMP 97.3; O2SAT 97
[2024-09-05 06:17] LABS: ALANINE AMINOTRANSFERASE 57 U/L (12-78); ALBUMIN 2.3 G/DL (3.4-5.0); ALBUMIN/GLOBULIN RATIO 0.7 (1.1-1.5); ALKALINE PHOSPHATASE 74 IU/L (46-116); ANION GAP 7 (8-16); ASPARTATE AMINO TRANSFERASE 30 U/L (10-37); BILIRUBIN,TOTAL 0.4 MG/DL (0.1-1.0); BLOOD UREA NITROGEN 10 MG/DL (7-18); BUN/CREATININE RATIO 9.9 (10.0-20.0); CALCIUM 8.3 MG/DL (8.5-10.1); CHLORIDE 107 MMOL/L (99-107); CREATININE 1.01 MG/DL (0.40-0.90); GLUCOSE 92 MG/DL (70-104); POTASSIUM 3.4 MMOL/L (3.5-5.1); SODIUM 144 MMOL/L (135-145); TOTAL PROTEIN 5.8 G/DL (6.4-8.2); eCRCL 69 ML/MIN; eGFR 61 ML/MIN
[2024-09-05 08:00] VITALS: RESP 14; O2SAT 97
[2024-09-05] MEDS: lactobacillus rhamnosus 10,000 MMU CELLS/CAPSULE PO SCH (09:14)
[2024-09-05] MEDS: POTASSIUM CHLORIDE 20 MEQ/15 ML oral solution PO ONE (09:14)
[2024-09-05 10:00] VITALS: BP 113/70; PULSE 70; RESP 14; TEMP 97.9; O2SAT 96
--- NOTE | 2024-09-05 14:04 | PROGRESS NOTE- Residence ---
Progress Note - Resident Providers to CC Resident Creating Document: JUSTIN STEARNS RES ~ Antibiotic Timeout Antibiotic Ordered?: Yes Subjective Patient has been evaluated at bedside. Patient reports significant improvement in symptoms. Rash at the level of the right lower extremity shrinking. Oral plaque currently improving. Objective Vital Signs Date Time Temp Pulse Resp B/P (MAP) Pulse Ox O2 Delivery O2 Flow Rate FiO2 09/05/24 10:00 97.9 70 14 113/70 (84) 96 Room Air 09/05/24 08:00 0.0 Physical exam: General: Well alert, well oriented, not confused, not agitated, not in acute distress, well cooperated during the physical. HEENT: Conjunctive are pink, sclerae clear, no icterus, pupil is equal in both sides, reactive to light, no ear discharge, no pharyngeal erythema or an edema. Presence of white tongue, plaque not removable-improving. Neck: Supple, no JVD, no lymphadenopathy and thyromegaly. Chest: Equal air entry on both lungs, no additional sounds no rhonchi no wheezing at the moment. Cardiovascular: S1-S2 regular sinus rhythm and, regular rate, no gallops, no rubs, no murmurs Abdomen: No visible peristalsis, Bowel sounds present on auscultation, soft, nontender, no guarding, no rigidity. Extremities: 2+ pedal edema in right lower extremity, red, warm to the touch, blisters in the plantar sore face of bilateral feet. Left lower extremity without edema, redness-improving. Currently covered with clean dressing. Central Nervous System: No focal neurological deficits, no motor or sensory weakness in all 4 extremities, could move all 4 extremities, 2+ deep tendon reflexes, negative Babinski. Musculoskeletal: No joint swelling, deformities, inflammations, and no scoliosis and back tenderness. Result Diagram: 09/05/24 0526 09/05/24 0937 Coagulation Studies Laboratory Tests Test 09/03/24 12:04 Prothrombin Time 11.3 SECONDS (9.0-12.0) INR International Normalized Ratio 1.1 INR D-Dimer 1.53 MG/L FEU (0-0.50) H D-Dimer Comment Coagulation Comments Assessment Assessment 39-year-old female patient came to the hospital with chief complaint of right lower extremity pain and redness. The patient had a recent trip to [facility], she reports that her trip was about 17 hours. DVT was ruled out with vascular ultrasound, pulmonary embolism was ruled out due to well's criteria 4.5. Plan Plan Right lower extremity cellulitis: DVT and pulmonary embolism-ruled out: Well's criteria: 4.5 Patient came to the hospital with chief complaint of right lower extremity swelling and redness. On physical exam right lower extremity is evidenced red, warm to the touch, presence of blisters in bilateral plantar aspect of the feet. Openned blisters in bilateral plantar aspect of the feet. Due to the patient recent long travel history, D-dimer elevated. CTA of the chest was obtained: Negative for pulmonary embolism, no acute cardiopulmonary pathology. Mild cardiomegaly. Vascular ultrasound of bilateral lower extremities: Impression: There is no evidence for DVT in either lower extremity. Lactic acid within reference range. ESR and procalcitonin trending down. Zosyn IV t.i.d. Linezolid 600 mg IV b.i.d. Continue wound care. Oral thrush: POA-improving: HIV: Negative Nystatin oral suspension 5 mL t.i.d. Follow-up vitamin B12. Currently still pending. Hypokalemia: The patient endorses 10 episodes of diarrhea which resolved two days ago. Currently resolved. Potassium levels 3.2. Follow-up potassium levels. Potassium levels within reference range. Replacement as per protocol. Prediabetes: Obesity class 3: BMI 57.4. Hemoglobin A1c: 5.4. The patient is on Ozempic 1 mg weekly. Obstructive sleep apnea: CPAP at night. Code status: Full code. Diet: Regular diet. IV access: PIV. DVT prophylaxis: Heparin. Pain control: Morphine. Disposition: Anticipated discharge tomorrow. The patient will require wound care as an outpatient. Justin Cabral Internal Medicine Resident [facility] Date of Service: Sep 05, 2024 Billing Provider: CHAY BANGURA MD,JUSTIN LIVE, RES Sep 05, 2024 14:04
[2024-09-05] MEDS: JUVEN Shake w/Arg/Glut/Ca2+Bmb (Juven 19.3gm) pkt 240ml PO SCH (14:19)
[2024-09-05 18:00] VITALS: BP 117/67; PULSE 59; RESP 16; TEMP 97.7; O2SAT 96
[2024-09-05 20:00] VITALS: RESP 16; O2SAT 96
[2024-09-05 22:00] VITALS: BP 104/64; PULSE 63; RESP 18; TEMP 98; O2SAT 96
[2024-09-06 06:00] VITALS: BP 110/52; PULSE 64; RESP 14; TEMP 97.8; O2SAT 96
[2024-09-06 07:08] LABS: BASOPHILS % (AUTO) 0.5 % (0-1); EOSINOPHILS # (AUTO) 0.2 X10'3 (0-0.9); EOSINOPHILS % (AUTO) 3.9 % (0-6); HEMATOCRIT 37.5 % (35.0-45.0); HEMOGLOBIN 12.6 g/dl (12.0-16.0); LYMPHOCYTES # (AUTO) 2.1 X10'3 (1.1-4.8); LYMPHOCYTES % (AUTO) 43.5 % (21-51); MEAN CORPUSCULAR HEMOGLOBIN 27.6 PG (27.0-31.0); MEAN CORPUSCULAR HGB CONC 33.6 g/dL (33.0-36.5); MEAN CORPUSCULAR VOLUME 82.2 FL (78-98); MEAN PLATELET VOLUME 10.1 FL (7.4-10.4); MONOCYTES # (AUTO) 0.4 X10'3 (0-0.9); MONOCYTES % (AUTO) 8.1 % (2-12); NEUTROPHILS # (AUTO) 2.1 X10'3 (1.8-7.7); PLATELET COUNT 169 X10'3 (140-440); RED BLOOD COUNT 4.56 X10'6 (4.20-5.60); RED CELL DISTRIBUTION WIDTH 15.1 % (11.5-14.5); WHITE BLOOD COUNT 4.8 X10'3 (4.5-11.0)
[2024-09-06 07:31] LABS: ALANINE AMINOTRANSFERASE 45 U/L (12-78); ALBUMIN 2.3 G/DL (3.4-5.0); ALBUMIN/GLOBULIN RATIO 0.7 (1.1-1.5); ALKALINE PHOSPHATASE 69 IU/L (46-116); ANION GAP 5 (8-16); ASPARTATE AMINO TRANSFERASE 29 U/L (10-37); BILIRUBIN,TOTAL 0.3 MG/DL (0.1-1.0); BLOOD UREA NITROGEN 8 MG/DL (7-18); BUN/CREATININE RATIO 8.8 (10.0-20.0); CALCIUM 8.2 MG/DL (8.5-10.1); CHLORIDE 108 MMOL/L (99-107); CREATININE 0.91 MG/DL (0.40-0.90); GLUCOSE 83 MG/DL (70-104); MAGNESIUM 1.7 MG/DL (1.5-2.4); POTASSIUM 3.9 MMOL/L (3.5-5.1); SODIUM 142 MMOL/L (135-145); TOTAL PROTEIN 5.7 G/DL (6.4-8.2); eCRCL 77 ML/MIN; eGFR 68 ML/MIN
[2024-09-06 10:00] VITALS: BP 117/67; PULSE 73; RESP 16; TEMP 97.9; O2SAT 95
[2024-09-06 12:46] LABS: C DIFF ANTIGEN NEGATIVE (NEGATIVE); C DIFF SPECIMEN=DIARRHEA? ACCEPTABLE; C DIFFICILE TOXINS A&B NEGATIVE (Neg)
--- NOTE | 2024-09-06 14:44 | PROGRESS NOTE- Residence ---
Progress Note - Resident Providers to CC Resident Creating Document: JUSTIN STEARNS RES ~ Antibiotic Timeout Antibiotic Ordered?: Yes Subjective Patient has been evaluated at bedside. Patient reports significant improvement in symptoms. Rash at the level of the right lower extremity improving. Significant improvement of oral plate. Objective Vital Signs Date Time Temp Pulse Resp B/P (MAP) Pulse Ox O2 Delivery O2 Flow Rate FiO2 09/06/24 10:00 97.9 73 16 117/67 (84) 95 Room Air 09/05/24 08:00 0.0 Physical exam: General: Well alert, well oriented, not confused, not agitated, not in acute distress, well cooperated during the physical. HEENT: Conjunctive are pink, sclerae clear, no icterus, pupil is equal in both sides, reactive to light, no ear discharge, no pharyngeal erythema or an edema. Presence of white tongue, plaque not removable-improving. Neck: Supple, no JVD, no lymphadenopathy and thyromegaly. Chest: Equal air entry on both lungs, no additional sounds no rhonchi no wheezing at the moment. Mild redness under right breast due to friction. Cardiovascular: S1-S2 regular sinus rhythm and, regular rate, no gallops, no rubs, no murmurs Abdomen: No visible peristalsis, Bowel sounds present on auscultation, soft, nontender, no guarding, no rigidity. Extremities: 2+ pedal edema in right lower extremity, red, warm to the touch, blisters in the plantar sore face of bilateral feet. Left lower extremity without edema, redness-improving. Currently covered with clean dressing. Central Nervous System: No focal neurological deficits, no motor or sensory weakness in all 4 extremities, could move all 4 extremities, 2+ deep tendon reflexes, negative Babinski. Musculoskeletal: No joint swelling, deformities, inflammations, and no scoliosis and back tenderness. Result Diagram: 09/06/24 0626 09/06/24 06 Coagulation Studies Laboratory Tests Test 09/03/24 12:04 Prothrombin Time 11.3 SECONDS (9.0-12.0) INR International Normalized Ratio 1.1 INR D-Dimer 1.53 MG/L FEU (0-0.50) H D-Dimer Comment Coagulation Comments Assessment Assessment 39-year-old female patient came to the hospital with chief complaint of right lower extremity pain and redness. The patient had a recent trip to [facility], she reports that her trip was about 17 hours. DVT was ruled out with vascular ultrasound, pulmonary embolism was ruled out due to well's criteria 4.5. Plan Plan Right lower extremity cellulitis: DVT and pulmonary embolism-ruled out: Well's criteria: 4.5 Patient came to the hospital with chief complaint of right lower extremity swelling and redness. On physical exam right lower extremity is evidenced red, warm to the touch, presence of blisters in bilateral plantar aspect of the feet. Opened blisters in bilateral plantar aspect of the feet. Due to the patient recent long travel history, D-dimer elevated. CTA of the chest was obtained: Negative for pulmonary embolism, no acute cardiopulmonary pathology. Mild cardiomegaly. Vascular ultrasound of bilateral lower extremities: Impression: There is no evidence for DVT in either lower extremity. Lactic acid within reference range. ESR and procalcitonin trending down. Zosyn IV t.i.d. Linezolid 600 mg IV b.i.d. Continue wound care. Oral thrush: POA-improving: HIV: Negative Nystatin oral suspension 5 mL t.i.d. Vitamin B12 within reference range. Traveler diarrhea: Hypokalemia-resolved: The patient endorsed 10 episodes of diarrhea. Subsided two days previous to admission. She reported again diarrhea since yesterday. Currently subsiding. Potassium levels within reference range. C diff: Negative. Replacement as per protocol. Prediabetes: Obesity class 3: BMI 57.4. Hemoglobin A1c: 5.4. The patient is on Ozempic 1 mg weekly. Obstructive sleep apnea: CPAP at night. Code status: Full code. Diet: Regular diet. IV access: PIV. DVT prophylaxis: Heparin. Pain control: Morphine. Disposition: Anticipated discharge tomorrow. The patient will require wound care as an outpatient. Justin Cabral Internal Medicine Resident [facility] Date of Service: Sep 06, 2024 Billing Provider: CHAY BANGURA MD, FRANCO LUIS, RES Sep 06, 2024 14:44
[2024-09-06 18:00] VITALS: BP 117/67; PULSE 73; RESP 16; O2SAT 96
[2024-09-06 22:00] VITALS: BP 115/64; PULSE 63; RESP 18; TEMP 98.7; O2SAT 96
[2024-09-06] MEDS: nystatin 15 GM powder TP SCH (22:49)
[2024-09-06] MEDS: linezolid 600mg tablet PO SCH (23:36)
[2024-09-07 06:00] VITALS: BP 120/66; PULSE 64; RESP 16; TEMP 98.2; O2SAT 100
[2024-09-07 06:01] LABS: BASOPHILS % (AUTO) 0.5 % (0-1); EOSINOPHILS # (AUTO) 0.2 X10'3 (0-0.9); EOSINOPHILS % (AUTO) 4.6 % (0-6); HEMATOCRIT 36.7 % (35.0-45.0); HEMOGLOBIN 12.1 g/dl (12.0-16.0); LYMPHOCYTES # (AUTO) 2.2 X10'3 (1.1-4.8); LYMPHOCYTES % (AUTO) 43.4 % (21-51); MEAN CORPUSCULAR HEMOGLOBIN 27.1 PG (27.0-31.0); MEAN CORPUSCULAR VOLUME 82.1 FL (78-98); MEAN PLATELET VOLUME 9.7 FL (7.4-10.4); MONOCYTES # (AUTO) 0.5 X10'3 (0-0.9); MONOCYTES % (AUTO) 9.1 % (2-12); NEUTROPHILS # (AUTO) 2.2 X10'3 (1.8-7.7); NEUTROPHILS % (AUTO) 42.4 % (42-75); PLATELET COUNT 188 X10'3 (140-440); RED BLOOD COUNT 4.48 X10'6 (4.20-5.60); RED CELL DISTRIBUTION WIDTH 15.3 % (11.5-14.5); WHITE BLOOD COUNT 5.1 X10'3 (4.5-11.0)
[2024-09-07 06:18] LABS: ALANINE AMINOTRANSFERASE 55 U/L (12-78); ALBUMIN 2.4 G/DL (3.4-5.0); ALBUMIN/GLOBULIN RATIO 0.7 (1.1-1.5); ALKALINE PHOSPHATASE 69 IU/L (46-116); ANION GAP 5 (8-16); ASPARTATE AMINO TRANSFERASE 39 U/L (10-37); BILIRUBIN,TOTAL 0.2 MG/DL (0.1-1.0); BLOOD UREA NITROGEN 12 MG/DL (7-18); BUN/CREATININE RATIO 12.8 (10.0-20.0); CALCIUM 8.3 MG/DL (8.5-10.1); CHLORIDE 108 MMOL/L (99-107); CREATININE 0.94 MG/DL (0.40-0.90); GLUCOSE 91 MG/DL (70-104); MAGNESIUM 1.9 MG/DL (1.5-2.4); POTASSIUM 4.2 MMOL/L (3.5-5.1); SODIUM 143 MMOL/L (135-145); TOTAL PROTEIN 5.8 G/DL (6.4-8.2); eCRCL 74 ML/MIN; eGFR 66 ML/MIN
[2024-09-07] MEDS ORDERED: NYST100069 PO ×2 (10:19→15:28)
[2024-09-07] MEDS ORDERED: LACT1CAP26 PO (10:19)
[2024-09-07] MEDS ORDERED: LINE600T14 PO ×2 (10:19→10:24)
[2024-09-07] MEDS: acetaminophen 325mg tablet PO PRN (12:18)
--- NOTE | 2024-09-07 16:43 | DISCHARGE SUMMARY-Residence ---
Discharge Summary Providers to CC Resident Creating Document: DASIADASIA OSULLIVANSHAWN Shanks, RES ~ Discharge Summary Admission Diagnosis: Cellulitis Hospital Course DATE OF ADMISSION: 09/03/2024 DATE OF DISCHARGE: 09/07/2024 Laboratory: WBC 5.1, RBC 4.48, hemoglobin 12.1, hematocrit 36.7, MCV 82.1, platelets 188, sodium 143, potassium 4.2, chloride 108, carbon dioxide 30.0, BUN 12, creatinine 0.84, GFR 66, hemoglobin A1c: 5.4 Imaging: Chest/thorax CTA: No central pulmonary emboli. No acute cardiopulmonary pathology.Mild cardiomegaly Vascular ultrasound: There is no evidence for DVT in either lower extremity. Foot x-ray: There is no evidence of acute fracture or dislocation. No definite radiographic evidence of osteomyelitis. Plantar calcaneal enthesopathy. Moderate diffuse plantar surface soft tissue swelling. Discharge Diagnosis\Comment: Right lower extremity cellulitis DVT and pulmonary embolism-ruled out Well's criteria: 4.5 Oral thrush: POA-improving Traveler diarrhea Hypokalemia-resolved Prediabetes Obesity class 3 Obstructive sleep apnea Operations\Procedures: None Consultants: None Complications: None Condition on DC: Stable New Medications: Lactobacillus Rhamnosus (Culturelle) 10 Billion Cell Capsule 1 CAP PO BID for 30 Days, #60 CAP 0 Refills Linezolid (Linezolid) 600 Mg Tablet 1 TAB PO Q12H for 7 Days, #14 TAB 0 Refills Nystatin (Nystatin) 100,000 Unit/Ml Oral.susp 5 ML PO Q8H for 6 Days, #200 ML Continued Medications: Semaglutide (Ozempic) 1 Mg/0.75 Ml (4 Mg/3 Ml) Pen.injctr 1 DIS.SYR SQ Q7D Discharge Summary: HPI: 39 years old female patient with past medical history of obstructive sleep apnea, prediabetes, and obesity came to the hospital with chief complaint of r ight lower extremity pain. The patient mentioned that she noticed a blister in her right foot the last Wednesday, after two days she noticed the blister this one broke and redness started going up to his right calf and leg. Previous to that she endorses that she did a long walk of 6 hours in [facility] where she traveled on 08/26/2024. The patient describes burning sensation, pain 10/10 in intensity in the right lower extremity, no radiation, associated throbbing, feeling hot, she endorses on and off chills and nausea. The patient mentioned that she went to a clinic in [place] due to her blisters, she was prescribed with a an antibiotic for three days, and discharged. The patient states that her trip was on 19 hours flight. Associated to these symptoms she also endorses diarrhea for 10 days which resolved two days ago, normal bowel movements in the last two days. The patient regularly walks by herself but lately for her blisters she has been walking with the help of a cane. Hospital course: 39-year-old female patient came to the hospital with chief complaint of right lower extremity pain and redness. The patient had a recent trip to [facility], she reports that her trip was about 17 hours. DVT was ruled out with vascular ultrasound, pulmonary embolism was ruled out due to well's criteria 4.5. IV antibiotics based on Zosyn and linezolid IV was started. Lower extremity redness was marked on admission. On physical exam white plaque at the level of the tongue was evidenced. The patient received nystatin oral t.i.d. with significant improvement. Redness in right lower extremity with significant improvement. Wound care was ordered for bilateral plantar opened blisters. The patient also endorsed episodes of diarrhea. C diff was ruled out. Previous to discharge the patient endorsed firm stools. The patient remained hemodynamically stable. Blood cultures negative. The patient will be discharged home. Discharge course: The patient remained hemodynamically stable. The patient will be discharged with the following instructions:PATIENT HAS AN OUTPATIET WOUND CARE APPOINTMENT WITH [facility] ([address] [place] [address]) PHONE NUMBER ([phone]) Wednesday09/11/24 AT 12:30PM. Come back to the emergency department or call 911 if fever, increasing redness of the lower extremity, secretion of pus, intractable pain, shortness of breath, chest pain or palpitations is evidenced. Follow-up with primary care physician Dr. Martines within 15 days. Continue your body powder for skin folds. Continue nystatin mouth wash for five days, 5 mL every 8 hours. Culturelle one capsule every 12 hours for 30 days. Linezolid one tablet of 600 mg twice daily. Keep well hydrated. Continue your home medication. Continue using CPAP at night. Vital Signs Date Time Temp Pulse Resp B/P (MAP) Pulse Ox O2 Delivery O2 Flow Rate FiO2 09/07/24 08:00 Room Air 0.0 09/07/24 06:00 98.2 64 16 120/66 (84) 100 Physical exam: General: Well alert, well oriented, not confused, not agitated, not in acute distress, well cooperated during the physical. HEENT: Conjunctive are pink, sclerae clear, no icterus, pupil is equal in both sides, reactive to light, no ear discharge, no pharyngeal erythema or an edema. Presence of white tongue, plaque not removable-improving. Neck: Supple, no JVD, no lymphadenopathy and thyromegaly. Chest: Equal air entry on both lungs, no additional sounds no rhonchi no wheezing at the moment. Mild redness under right breast due to friction. Cardiovascular: S1-S2 regular sinus rhythm and, regular rate, no gallops, no rubs, no murmurs Abdomen: No visible peristalsis, Bowel sounds present on auscultation, soft, nontender, no guarding, no rigidity. Extremities: 1+ pedal edema in right lower extremity, red, warm to the touch, blisters in the plantar sore face of bilateral feet. Left lower extremity without edema, redness-improving. Currently covered with clean dressing. Central Nervous System: No focal neurological deficits, no motor or sensory weakness in all 4 extremities, could move all 4 extremities, 2+ deep tendon reflexes, negative Babinski. Musculoskeletal: No joint swelling, deformities, inflammations, and no scoliosis and back tenderness. *Problems/Diagnosis: (1) Cellulitis of lower extremity Status: Acute (2) Oral thrush Status: Resolved (3) HUNTER (obstructive sleep apnea) Status: Chronic (4) Travelers' diarrhea Total Time Spent on D/C: Up to 30 Minutes Date of Service: Sep 07, 2024 Billing Provider: CHAY BANGURA MD Problem Qualifiers (1) Cellulitis of lower extremity: Laterality: right Qualified Codes: L03.115 - Cellulitis of right lower limb DASIADASIA ROSENBERGSHAWN CALOS, RES Sep 07, 2024 16:43
== END 2024-09-07 14:30 | disposition home health service (06) | DRG 383 ==
LOC: ER 03:57 → UNDOADMIN 07:16 → ED HOLD 07:16 → ORTHO 4S 11:00
PROVIDERS: ADMIT Family Medicine; ATTEND Family Medicine
PROC: 5A09357 Assistance with Respiratory Ventilation, Less than 24 Consecutive Hours, Continuous Positive Airway Pressure (ICD-10-PCS; 2024-09-03)
PROC: B32T1ZZ Computerized Tomography (CT Scan) of Left Pulmonary Artery using Low Osmolar Contrast (ICD-10-PCS; principal; 2024-09-04)
PROC: B3201ZZ Computerized Tomography (CT Scan) of Thoracic Aorta using Low Osmolar Contrast (ICD-10-PCS; 2024-09-04)
PROC: B32S1ZZ Computerized Tomography (CT Scan) of Right Pulmonary Artery using Low Osmolar Contrast (ICD-10-PCS; 2024-09-04)
PROC: 5A09357 Assistance with Respiratory Ventilation, Less than 24 Consecutive Hours, Continuous Positive Airway Pressure (ICD-10-PCS; 2024-09-05)
PROC: 5A09357 Assistance with Respiratory Ventilation, Less than 24 Consecutive Hours, Continuous Positive Airway Pressure (ICD-10-PCS; 2024-09-07)
DX: L03.115 Cellulitis of right lower limb (principal); B37.0 Candidal stomatitis; Z68.43 Body mass index [BMI] 50.0-59.9, adult; E11.9 Type 2 diabetes mellitus without complications; E87.6 Hypokalemia; E66.01 Morbid (severe) obesity due to excess calories; G47.33 Obstructive sleep apnea (adult) (pediatric); Z88.8 Allergy status to other drugs, medicaments and biological substances
CPT/HCPCS: 36415; 71275; 73630; 80048; 80053; 80061; 82607; 83036; 83605; 83735; 84132; 84145; 85025; 85379; 85610; 85651; 86140; 86703; 87040; 87081; 87324; 87449; 93970; 97116; 97161; 97530; 99285; A4649; A6209; A6212; A6213; A6222; A6223; A6253; A6446; A6449; G0378; J1644; J2020; J2270; J2543; J7030; Q9967

== ENCOUNTER 2025-02-18 23:24 | Emergency (ER) | payer MEDICAID ==
[~2025-02-18] VITALS: Ht 167.6 cm; Wt 163.5 kg
[~2025-02-18 23:24] MED LIST changes: +LACT1CAP26 PO; +LINE600T14 PO; +NYST100069 PO
--- NOTE | 2025-02-18 23:34 | ELECTROCARDIOGRAPH REPORT ---
[facility] Test Date: 2025-02-18 Test Time: 23:33:00 Pat Name: JAMIN MERINO Department: ER [id number] Room: Gender: F [place]: : 1985 Requested By: HUSSEIN BEAVER Order Number: [id number] Reading MD: Dr. Hussein Beaver Measurements Intervals [place] Rate: 81 P: 52 NV: 170 QRS: 42 QRSD: 85 T: 55 QT: 379 QTc: 440 Interpretive Statements Sinus rhythm Low voltage, precordial leads Electronically Signed On 02-19-2025 0:09:[address] Hussein Beaver Please click the below link to view image of tracing.
--- NOTE | 2025-02-18 23:52 | RADIOLOGY REPORT ---
CHEST RADIOGRAPH Indication: CP Technique: 1 view Comparison: CHEST,SINGLE VIEW on DOS: 01/18/21 FINDINGS: Lines and Tubes: None. Lungs/Pleura: Bilateral perihilar interstitial prominence. No focal consolidation, pleural effusion or pneumothorax. Mild left basilar scarring/atelectasis. Cardiomediastinum: Unremarkable. Other: No acute osseous abnormality. IMPRESSION: 1. Interstitial opacities may represent edema or pneumonitis/bronchitis. No consolidation.
[2025-02-19 00:04] LABS: MEAN PLATELET VOLUME 9.8 FL (7.4-10.4); RED CELL DISTRIBUTION WIDTH 15.0 % (11.5-14.5)
[2025-02-19 00:12] LABS: CREATININE 1.02 MG/DL (0.40-0.90); TOTAL CARBON DIOXIDE 27.0 MMOL/L (24-32); eCRCL 68 ML/MIN; eGFR 60 ML/MIN
[2025-02-19 00:21] LABS: PRO BRAIN NATRIURETIC PEPTIDE 82 PG/ML (0-125)
--- NOTE | 2025-02-19 09:35 | Physician Documentation ---
Addendum CHIEF COMPLAINT/HPI: The patient is a 40-year-old female with a history of morbid obesity, obstruc tive sleep apnea and prediabetes who presents with several days of fatigue slight nonproductive cough and some shortness of breath with exertion. She denies chest pain. She is currently taking Ozempic but discontinued it the 13th of last month because she thought some of her symptoms might be due to that. She denies chills and fever. REVIEW OF SYSTEMS: Constitutional: Denies chills, fatigue, fever, weight gain or unintentional weight loss. HEENT: Denies hearing loss, sinus pressure or visual changes. Respiratory: Mild shortness of breath. Cardiovascular: Denies chest pain, pain while walking (claudication), edema or palpitations. Gastrointestinal: Denies abdominal pain, blood in stool, constipation, diarrhea, heartburn, loss of appetite, nausea or vomiting. Genitourinary: Denies painful urination (dysuria), excessive amount of urine (polyuria) or urinary frequency. Metabolic/Endocrine: Denies cold intolerance, heat intolerance, excessive thirst (polydipsia) or excessive hunger (polyphagia). Neurological: Denies dizziness, extremity numbness, extremity weakness, headaches, seizures or tremors. Psychiatric: Denies anxiety or depression. Integumentary: Denies breast discharge, breast lump, hives, mole change(s), rash or skin lesion. Musculoskeletal: Denies back pain, joint pain, joint swelling or neck pain. Hematologic: Denies easily bleeding, easily bruises, lymphedema or issues with blood clots. Immunologic: Denies food allergies or seasonal allergies. PHYSICAL EXAMINATION: Vitals and nursing note reviewed. Constitutional: General: Patient is awake, alert, oriented x 4 in no acute distress and well appearing. Speech is clear and lucid. Appearance: Normal appearance. Patient is not ill-appearing, toxic-appearing or diaphoretic. HENT: Head: Normocephalic and atraumatic. Mouth/Throat: Mouth: Mucous membranes are moist. Pharynx: Oropharynx is clear. Eyes: General: No scleral icterus. Extraocular Movements: Extraocular movements intact. Pupils: Pupils are equal, round, and reactive to light. Neck: Supple, no Kernig or Brudzinski sign. Cardiovascular: Rate and Rhythm: Normal rate and regular rhythm. Heart sounds: No murmur heard. Pulmonary: Effort: No respiratory distress. Breath sounds: No wheezing, rhonchi or rales. Abdominal: General: There is no distension. Palpations: There is no fluid wave, hepatomegaly or mass. Tenderness: There is no abdominal tenderness. There is no guarding. Musculoskeletal: General: No swelling or deformity. Skin: Coloration: Skin is not jaundiced. Findings: No erythema or rash. Neurological: Mental Status: Patient is alert. MEDICAL DECISION MAKING: This 40-year-old female presented with mild cough, dyspnea on exertion and myalgias. I believe this is most consistent with a viral illness but I am prescribing a Z-Arpan which I have instructed her to take if her symptoms persist or become worse over the next few days. It is possible based upon the chest x- ray she has bronchitis. There is no pneumonia. She does not have a leukocytosis or fever. Departure Disposition: 01 HOME / SELF CARE / HOMELESS Impression: Primary Impression: Bronchitis Condition: Stable Prescriptions Azithromycin (Zithromax) 250 Mg Tablet 1 TAB PO DAILY, #6 TAB azithromycin z pack as directed in packaging Prov: LEIGHANN HANCOCK MD 02/19/25 Education Educated: Patient Educated regarding: diagnosis, treatment, prognosis LEIGHANN HANCOCK MD Feb 19, 2025 09:35
[2025-02-19 10:56] LABS: LEUKOCYTE ESTERASE ,URINE NEGATIVE (Neg); NITRITES, URINE NEGATIVE (Neg); OCCULT BLOOD,URINE NEGATIVE (Neg)
[2025-02-19 11:02] LABS: UA COLLECTION TYPE CLN CATCH MIDSTREAM
[2025-02-19 11:05] LABS: RENAL CELLS, URINE MODERATE /HPF; SQUAMOUS EPITHELIAL CELL,UR MANY /LPF (FEW)
[2025-02-19] MEDS ORDERED: AZIT-164 PO (12:05)
[2025-02-19 12:32] VITALS: BP 123/82; PULSE 64; RESP 16; TEMP 97.8; O2SAT 98
== END 2025-02-19 12:35 | disposition home or self-care (01) ==
LOC: ER 23:24
DX: J40 Bronchitis, not specified as acute or chronic (principal); Z20.822 Contact with and (suspected) exposure to COVID-19
CPT/HCPCS: 36415; 71045; 80053; 81001; 83690; 83880; 84484; 85025; 87811; 93005; 99285

== ENCOUNTER 2025-03-19 19:35 | Emergency (ER) | payer MEDICAID ==
[~2025-03-19] VITALS: Ht 167.6 cm; Wt 166.3 kg
[2025-03-19 20:54] LABS: INFLUENZA TYPE A ANTIGEN RAPID NEGATIVE (Negative); INFLUENZA TYPE B ANTIGEN RAPID NEGATIVE (Negative)
[2025-03-19] MEDS: normal saline 1000ml 1,000 ML IV ONE (21:50)
[2025-03-19 22:41] LABS: MEAN PLATELET VOLUME 9.2 FL (7.4-10.4); RED CELL DISTRIBUTION WIDTH 15.1 % (11.5-14.5)
[2025-03-19 22:51] LABS: CREATININE 1.13 MG/DL (0.40-0.90); TOTAL CARBON DIOXIDE 28.0 MMOL/L (24-32); eCRCL 61 ML/MIN; eGFR 53 ML/MIN
--- NOTE | 2025-03-19 23:41 | Physician Documentation ---
History of Present Illness ~ Chief Complaint: Headache Stated Complaint: HEADACHE Time Seen by MD: 21:14 Primary Medical Doctor: DO. rakan [facility]3] HPI 40 y/o female with headache and fever x 2 days. No rash, nuchal rigidity or vomiting. No ill contacts or recent travels out of the country yet visited [place] and was bitten by sand flies and sustained a sunburn. Medication Reconciliation Allergies: Coded Allergies: naproxen (Unverified Allergy, Unknown, 09/03/24) Scheduled Lactobacillus Rhamnosus (Culturelle), 1 CAP PO BID Linezolid (Linezolid), 1 TAB PO Q12H Nystatin (Nystatin), 5 ML PO Q8H Semaglutide (Ozempic), 1 DIS.SYR SQ Q7D, (Reported) Scheduled PRN Ibuprofen (Ibuprofen), 1 TAB PO Q6H PRN for fever or headache Discontinued Medications Azithromycin (Zithromax), 1 TAB PO DAILY Discontinued Reason: Auto Discontinued Past Medical History Past Medical History: Sleep Apnea, Diabetes Past Surgical History: no surgical history Alcohol Use: None Drug Use: none Lives with: Family Occupation: other Review of Systems All Other Systems at this time: Reviewed and Negative Constitutional: Reports: see HPI Respiratory: Reports: see HPI Neurological: Reports: headache Physical Exam Vital Signs: RN Vital Signs have been reviewed: Yes, Temperature: 102.5, Source: Oral, Heart Rate: 122, Respiratory Rate: 16, BP: 160/87, Pulse Oximetry: 99, Weight: 166.320 Oxygen Flow Rate: 0 General Appearance: alert, WD/WN, mild distress (Non ill-appearing) ENT: normal ENT inspection, PERRL/EOMI Nose: normal inspection Oropharynx: normal inspection Head: normal inspection Neck: non-tender, trachea midline; No: meningeal signs Respiratory: lungs clear, normal breath sounds Cardiovascular: normal peripheral pulses, tachycardia Gastrointestinal: non-tender Extremities: normal inspection Skin: warm/dry, normal color; No: rash Neurologic: oriented x4, 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 Motor / Sensory: no motor deficit, no sensory deficit Cerebellar function exam: normal Psychiatric: normal mood/affect Progress Results/Orders Results/Orders Orders - CAITLYN THOMPSON PAC Chest,Single View (03/19/25 22:09) Completed Orders - CAITLYN THOMPSON PAC Acetaminophen 325mg Tablet (Tylenol Tabl (03/19/25 21:50) Normal Saline 1000ml (0.9% Sodium Chlori (03/19/25 21:50) Cbc/Diff (03/19/25 21:48) CMP (03/19/25 21:48) Chest,Single View (03/19/25 22:09) Ua W/Microscopic, Cult If Ind (03/19/25 23:11) Ibuprofen Tablet (Motrin Tablet) (03/20/25 00:15) Vital Signs 03/19/25 03/20/25 20:09 00:56 Temp 102.5 100.2 Pulse 122 94 Resp 16 18 B/P (MAP) 160/87 140/80 Pulse Ox 99 96 O2 Flow Rate 0 Laboratory Tests Test 03/19/25 20:14 03/19/25 22:31 03/19/25 23:11 Influenza Type A Antigen Negative Influenza Type B Antigen Negative SARS-CoV-2 Antigen (Rapid) Negative White Blood Count 8.1 Red Blood Count 5.18 Hemoglobin 14.4 Hematocrit 42.3 Mean Corpuscular Volume 81.7 Mean Corpuscular Hemoglobin 27.8 Mean Corpuscular Hemoglobin Concent 34.1 Red Cell Distribution Width 15.1 H Platelet Count 183 Mean Platelet Volume 9.2 Neutrophils (%) (Auto) 76.5 H Lymphocytes (%) (Auto) 14.8 L Monocytes (%) (Auto) 7.6 Eosinophils (%) (Auto) 0.3 Basophils (%) (Auto) 0.8 Neutrophils # (Auto) 6.2 Lymphocytes # (Auto) 1.2 Monocytes # (Auto) 0.6 Eosinophils # (Auto) 0.0 Basophils # (Auto) 0.1 CBC Comment Sodium Level 139 Potassium Level 3.6 Chloride Level 106 Carbon Dioxide Level 28.0 Anion Gap 5 L Blood Urea Nitrogen 8 Creatinine 1.13 H Estimated GFR/1.73 m2 53 BUN/Creatinine Ratio 7.1 L Glucose Level 112 H Calcium Level 8.0 L Total Bilirubin 0.7 Aspartate Amino Transf (AST/SGOT) 21 Alanine Aminotransferase (ALT/SGPT) 18 Alkaline Phosphatase 98 Total Protein 6.9 Albumin 3.1 L Globulin 3.8 Albumin/Globulin Ratio 0.8 L Chemistry Comments Urine Specimen Description Non-specified Urine Color Yellow Urine Clarity Clear Urine pH 6.0 Urine Specific [place] 1.020 Urine Protein Negative Urine Glucose (UA) Negative Urine Ketones Trace H Urine Occult Blood Trace-intact Urine Nitrite Negative Urine Bilirubin Negative Urine Urobilinogen 0.2 Urine Leukocyte Esterase Negative Urine RBC 0-2 Urine WBC 0-4 Urine Squamous Epithelial Cells Few Urine Bacteria 1+ Urine Mucus Moderate Urine Culture Indicated Not ind Volume Urine Centrifuged 10 ml Urine Comment Medical Decision Making Additional information obtaine: family Findings 40-year-old female presents to the emergency department for evaluation of headache, fever occasional cough and body aches for 2-3 days. Seen at urgent care and had negative COVID and RSV screening yet continued to have fever and headache so she presents to the emergency department. Please see HPI. Emergency department course: Chest x-ray imaging reassuring for no infiltrate, effusions or tumor mass. Urinalysis reassuring for no evidence of urinary tract infection. Screening labs also reassuring. Patient examination history consistent with that of viral syndrome with very low suspicion of that being meningitis. She received IV hydration in the emergency department along with Tylenol and ibuprofen for fever myalgias and headache. She did have mitigation of her tachycardia however continues to have mild headache without visual difficulties, dizziness or nuchal rigidity. Strict aftercare instructions to continue to hydrate and take Tylenol ibuprofen. Her repeated screening for COVID, influenza A and B also reassuring as negative. Safely discharged in the emergency department with instructions to return a 24-48 hours if not well. Differential Dx:Considerations: Include: LUCERO-Migraine, Fever induced, Meningitis, Pseudotumor cerebri, Other (Viral Syndrome, Zoological disease) Departure Disposition: HOME / SELF CARE / HOMELESS Impression: Primary Impression: Viral syndrome Condition: Improved Discharge Instructions: Fever, Adult, [id number] Additional Instructions: Please continue with Motrin and Tylenol every 6 hours for fever or headache. Return to Emergency if symptoms not improved in 48 hours for re-evaluation. You screening labs for COVID, Influenza A & B along with Chest X-ray and Labs are reassuring. Referrals: NO PRIMARY CARE PROVIDER (PCP) Prescriptions Ibuprofen (Ibuprofen) 600 Mg Tablet 1 TAB PO Q6H PRN for fever or headache, #30 TAB Prov: CAITLYN THOMPSON 03/20/25 Education Educated: Patient, Family Educated regarding: diagnosis, treatment, prognosis, need for follow up Signature Scribe Signature: . Attestation: . CAITLYN THOMPSON PAC Mar 19, 2025 23:41
[2025-03-19 23:42] LABS: LEUKOCYTE ESTERASE ,URINE NEGATIVE (Neg); NITRITES, URINE NEGATIVE (Neg); OCCULT BLOOD,URINE TRACE-INTACT (Neg)
[2025-03-19 23:43] LABS: UA COLLECTION TYPE NON-SPECIFIED
[2025-03-19 23:52] LABS: MUCUS STRANDS MODERATE /LPF (Neg); SQUAMOUS EPITHELIAL CELL,UR FEW /LPF (FEW)
[2025-03-20] MEDS ORDERED: IBUP600T52 PO (00:12)
[2025-03-20] MEDS: ibuprofen tablet 400 MG TABLET PO ONE (00:37)
[2025-03-20 00:56] VITALS: BP 140/80; PULSE 94; RESP 18; TEMP 100.2; O2SAT 96
--- NOTE | 2025-03-20 09:02 | RADIOLOGY REPORT ---
CHEST RADIOGRAPH Indication: Fever with cough Technique: Single frontal view of the chest was obtained COMPARISON: DI CHEST,SINGLE VIEW on DOS: 02/18/25, CHEST,SINGLE VIEW on DOS: 01/18/21 FINDINGS: Lungs and pleural spaces are clear. Cardiac silhouette and jose are within normal limits. Bones and soft tissues demonstrate no significant abnormality. IMPRESSION: No acute disease.
[2025-03-21] MEDS ORDERED: KETO15CR2 TP
[2025-03-21] MEDS ORDERED: DOXY100C43 PO
[2025-03-21] MEDS ORDERED: HYDR-3686 PO
== END 2025-03-20 00:57 | disposition home or self-care (01) ==
LOC: ER 19:35
DX: B34.9 Viral infection, unspecified (principal); E11.9 Type 2 diabetes mellitus without complications; G47.30 Sleep apnea, unspecified; Z88.6 Allergy status to analgesic agent; Z79.899 Other long term (current) drug therapy; Z20.822 Contact with and (suspected) exposure to COVID-19
CPT/HCPCS: 36415; 71045; 80053; 81001; 85025; 87804; 87811; 96360; 96361; 99284; J7030

== ENCOUNTER 2025-03-20 22:16 | Emergency (ER) | payer MEDICAID ==
[~2025-03-20] VITALS: Ht 167.6 cm; Wt 166.0 kg
[~2025-03-20 22:16] MED LIST changes: +IBUP600T52 PO
--- NOTE | 2025-03-20 23:14 | Physician Documentation ---
History of Present Illness ~ Chief Complaint: Headache Stated Complaint: SWELLING ON HEAD/FEVER Time Seen by MD: 22:41 Primary Medical Doctor: DO. rakan [facility] Mode of Arrival: POV HPI 40-year-old female returns to the emergency department for re-evaluation of scalp and neck discomfort. Seen in the emergency department last night and had comprehensive evaluation. Was negative for COVID, influenza a and/or influenza B, RSV and laboratory screening was normal. Has had her fever and tachycardia mitigated today however continues to have nuchal discomfort along with mild headache and has since developed large cellulitic/hyperemic area to her forehead. This is a new finding from last night. Medication Reconciliation Allergies: Coded Allergies: naproxen (Unverified Allergy, Unknown, 09/03/24) Scheduled Doxycycline Monohydrate (Doxycycline Monohydrate), 100 MG PO BID Ketoconazole (Ketoconazole), 1 APPLIC TP TID Lactobacillus Rhamnosus (Culturelle), 1 CAP PO BID Linezolid (Linezolid), 1 TAB PO Q12H Nystatin (Nystatin), 5 ML PO Q8H Semaglutide (Ozempic), 1 DIS.SYR SQ Q7D, (Reported) Scheduled PRN Hydroxyzine Hcl* (Atarax*), 1 TAB PO Q6H PRN for ITCHING Ibuprofen (Ibuprofen), 1 TAB PO Q6H PRN for fever or headache Past Medical History Past Medical History: Sleep Apnea, Diabetes Past Surgical History: no surgical history Alcohol Use: None Drug Use: none Lives with: Family Occupation: other Review of Systems All Other Systems at this time: Reviewed and Negative Constitutional: Reports: see HPI Integumentary: Reports: see HPI Physical Exam Vital Signs: RN Vital Signs have been reviewed: Yes, Temperature: 98.9, Source: Oral, Heart Rate: 93, Respiratory Rate: 16, BP: 123/69, Pulse Oximetry: 98, Weight: 166.000 Oxygen Flow Rate: 0 General Appearance: alert, WD/WN, mild distress Oropharynx: normal inspection Head: other (8 cm x 4 cm oval hyperemic/erythemic forehead without pustules or fluctuance) Head No scalp lesions or obvious dander Neck: lymphadenopathy (R), lymphadenopathy (L), other (Posterior cervical lymphadenopathy); No: meningeal signs Respiratory: no respiratory distress Chest: no accessory muscle use Cardiovascular: normal peripheral pulses Extremities: normal inspection Skin: other (Erythema to forehead) Neurologic: oriented x4 Psychiatric: normal mood/affect Progress Results/Orders Results/Orders Completed Orders - CAITLYN THOMPSON PAC Ceftriaxone Im Kit W/Lidocaine (Rocephin (03/20/25 23:25) Fluconazole Tablet (Diflucan Tablet) (03/20/25 23:25) Hydroxyzine Tablet (Atarax Tablet) (03/20/25 23:25) Medications Received in ER Medications (Trade) Dose Ordered Sig/Juan Route PRN Reason Start Time Stop Time Status Last Admin Dose Admin (Rocephin 1GM IM kit (w/lidocaine diluent)) 1,000 mg ONCE ONCE IM 03/20/25 23:25 03/20/25 23:27 DC 03/20/25 23:40 1,000 MG (Diflucan tablet) 200 mg ONCE ONCE PO 03/20/25 23:25 03/20/25 23:27 DC 03/20/25 23:40 200 MG (Atarax tablet) 50 mg ONCE ONCE PO 03/20/25 23:25 03/20/25 23:27 DC 03/20/25 23:40 50 MG Vital Signs 03/20/25 03/20/25 03/20/25 22:20 22:45 23:48 Temp 98.9 98.9 Pulse 93 82 Resp 16 16 B/P (MAP) 123/69 128/77 (94) Pulse Ox 98 98 O2 Flow Rate 0 0 Medical Decision Making Additional information obtaine: old records Findings [age] year female returns to the emergency department for evaluation. Continues to be without fever or tachycardia noted while taking Tylenol & ibuprofen. Examination history tonight more clear and she has a forehead cellulitis with posterior cervical lymphadenopathy. We will provide ceftriaxone injection cover for fungal scalp infection with Diflucan and provide antihistamine. Can not exclude that the area of concern that represents cellulitis is in hyperemia and his a hypersensitivity reaction to unknown trigger. Patient we will be safely discharged in the emergency department without consideration tonight of meningitis as examination is very much defined. She will be discharged with a prescription for doxycycline, ketoconazole shampoo and hydroxyzine. She remains nontoxic appearing in safe for stable disc harge. Differential Dx:Considerations: Include: Meningitis, Pseudotumor cerebri, Other (Forehead cellulitis, scalp infection, carry on his, is a serological infection) Departure Disposition: HOME / SELF CARE / HOMELESS Impression: Primary Impression: Infection of scalp Additional Impression: Cellulitis of forehead Condition: Improved Additional Instructions: Your examination tonight is consistent with a scalp infection that may be Fungal and/or Bacterial in origin. You received antibiotic and Antifungal medication tonight. Please obtain prescriptions with the pharmacy and continue with your ibuprofen and Tylenol as directed. If symptoms worsen please return to the emergency department. Referrals: NO PRIMARY CARE PROVIDER (PCP) Prescriptions Hydroxyzine Hcl* (Atarax*) 25 Mg Tablet 1 TAB PO Q6H PRN for ITCHING for 10 Days, #30 TAB Prov: CAITLYN THOMPSON 03/21/25 Doxycycline Monohydrate (Doxycycline Monohydrate) 100 Mg Capsule 100 MG PO BID, #20 CAP may sub doxycycline hyclate or azithromycin z-pack as prescribed Prov: CAITLYN THOMPSON 03/21/25 Ketoconazole (Ketoconazole) 2 % Cream..g. 1 APPLIC TP TID, #120 ML Prov: CAITLYN THOMPSON 03/21/25 Education Educated: Patient, Family Educated regarding: diagnosis, treatment, prognosis, need for follow up Signature Scribe Signature: . Attestation: . CAITLYN THOMPSON Mar 20, 2025 23:14
[2025-03-20] MEDS: CefTRIAXone 1000mg IM Kit (w/lidocaine diluent) IM ONE (23:40)
[2025-03-20 23:48] VITALS: BP 128/77; PULSE 82; RESP 16; TEMP 98.9; O2SAT 98
[2025-03-21] MEDS ORDERED: HYDR-3686 PO
[2025-03-21] MEDS ORDERED: DOXY100C43 PO
[2025-03-21] MEDS ORDERED: KETO15CR2 TP
[2025-03-22] MEDS ORDERED: PRED20TA PO (09:42)
== END 2025-03-21 00:18 | disposition home or self-care (01) ==
LOC: ER 22:17
DX: L03.211 Cellulitis of face (principal); R51.9 Headache, unspecified; R50.9 Fever, unspecified; E11.9 Type 2 diabetes mellitus without complications; G47.30 Sleep apnea, unspecified; Z88.6 Allergy status to analgesic agent
CPT/HCPCS: 96372; 99283; J0696; Q0177

== ENCOUNTER 2025-03-22 07:40 | Emergency (ER) | payer MEDICAID ==
[~2025-03-22] VITALS: Ht 167.6 cm; Wt 165.8 kg
[~2025-03-22 07:40] MED LIST changes: +DOXY100C43 PO; +HYDR-3686 PO; +KETO15CR2 TP
[2025-03-22 07:42] VITALS: TEMP 97.8
--- NOTE | 2025-03-22 07:59 | Physician Documentation ---
Addendum CHIEF COMPLAINT/HPI: The patient is a 40-year-old female with a history of obstructive sleep apnea, prediabetes, and obesity who presents today with swelling of the left eyelids. The patient was seen here on 03/19/2025, three days ago, with fever. At that time she had a normal CBC, BMP and serology for COVID and influenza. She returned the next day, two days ago and had an area of erythema of the forehead which was thought to be cellulitis. She was started on doxycycline and topical ketoconazole. The erythema of the forehead is mostly pruritic. There is some swelling involved, as well. The patient was in [place] spending time on the beach from February 23 through the . She had no complaints at that time. REVIEW OF SYSTEMS: Constitutional: Denies chills, fatigue, fever, weight gain or weight loss. HEENT: Denies hearing loss, sinus pressure or visual changes. Does complain of itching of the head along with forehead. Respiratory: Denies cough, shortness of breath or wheezing. Cardiovascular: Denies chest pain, pain while walking (claudication), edema or palpitations. Gastrointestinal: Denies abdominal pain, blood in stool, constipation, diarrhea, heartburn, loss of appetite, nausea or vomiting. Genitourinary: Denies painful urination (dysuria), excessive amount of urine (polyuria) or urinary frequency. Metabolic/Endocrine: Denies cold intolerance, heat intolerance, excessive thirst (polydipsia) or excessive hunger (polyphagia). Neurological: Denies dizziness, extremity numbness, extremity weakness, headaches, seizures or tremors. Psychiatric: Denies anxiety or depression. Integumentary: Denies breast discharge, breast lump, hives, mole change(s), rash or skin lesion. Musculoskeletal: Denies back pain, joint pain, joint swelling or neck pain. Hematologic: Denies easily bleeding, easily bruises, lymphedema or issues with blood clots. Immunologic: Denies food allergies or seasonal allergies. PHYSICAL EXAMINATION: Vitals and nursing note reviewed. Constitutional: General: Patient is awake, alert, oriented x 4 in no acute distress and well appearing. Speech is clear and lucid. Appearance: Obese. Patient is not ill-appearing, toxic-appearing or diaphoretic. HENT: Head: Normocephalic, erythema of forehead with some swelling and swelling of left eyelids. Mouth: Mucous membranes are moist. Pharynx: Oropharynx is clear. Eyes: General: No scleral icterus. Extraocular Movements: Extraocular movements intact. Pupils: Pupils are equal, round, and reactive to light. Neck: Supple, no Kernig or Brudzinski sign. Cardiovascular: Rate and Rhythm: Normal rate and regular rhythm. Heart sounds: No murmur heard. Pulmonary: Effort: No respiratory distress. Breath sounds: No wheezing, rhonchi or rales. Abdominal: General: There is no distension. Palpations: There is no fluid wave, hepatomegaly or mass. Tenderness: There is no abdominal tenderness. There is no guarding. Musculoskeletal: General: No swelling or deformity. Skin: Coloration: Skin is not jaundiced. Findings: Forehead rash with mild swelling. Neurological: Mental Status: Patient is alert. MEDICAL DECISION MAKING: This 40-year-old female presents with itching and swelling of the forehead and to some extent scalp. There is associated swelling of the left eyelids. Laboratory data are reassuring. She complains of intense itching in the appearance of the rash is that of a contact dermatitis though the patient is not aware of any new contact. I am going to start the patient on a short course of prednisone and have her continue the doxycycline. Departure Disposition: 01 HOME / SELF CARE / HOMELESS Impression: Primary Impression: Dermatitis Additional Impression: Cellulitis of forehead Additional Instructions: You have been evaluated for an itchy/burning rash on your forehead with the itching of the scalp. Please continue taking the antibiotic capsules (doxycycline) in the new prescription of prednisone. Follow-up with your PCP in two days. In the meantime, return here for worsening symptoms or new/unusual symptoms. Prescriptions Prednisone* (Prednisone*) 20 Mg Tablet 3 TAB PO DAILY, #15 TAB Prov: LEIGHANN HANCOCK MD 03/22/25 Education Educated: Patient, Family Educated regarding: diagnosis, treatment, prognosis, need for follow up LEIGHANN HANCOCK MD Mar 22, 2025 07:59
[2025-03-22 08:53] LABS: MEAN PLATELET VOLUME 9.2 FL (7.4-10.4); RED CELL DISTRIBUTION WIDTH 15.0 % (11.5-14.5)
[2025-03-22 09:05] LABS: CREATININE 0.94 MG/DL (0.40-0.90); TOTAL CARBON DIOXIDE 26.1 MMOL/L (24-32); eCRCL 74 ML/MIN; eGFR 66 ML/MIN
[2025-03-22] MEDS ORDERED: PRED20TA PO (09:42)
[2025-03-22 09:53] VITALS: BP 148/91; PULSE 79; RESP 16; O2SAT 96
== END 2025-03-22 10:13 | disposition home or self-care (01) ==
LOC: ER 07:41
DX: L30.9 Dermatitis, unspecified (principal); L03.211 Cellulitis of face; E66.9 Obesity, unspecified; Z79.899 Other long term (current) drug therapy
CPT/HCPCS: 36415; 80053; 83605; 83735; 85025; 85651; 86140; 99283